=== PATIENT | male | born 1930 | race Caucasian/White ===

== ENCOUNTER 2016-06-27 07:24 | Emergency (ER) | payer MEDICARE, BC ==
[2015-01-29 10:30] VITALS: BMI 24.5
[~2016-06-27 07:24] MED LIST: ACETAMINOPHEN325 MG PO; ANTIVERT25 MG PO; AUGMENTIN 875-11 TAB PO; BACTRIM DS TABL1 TAB PO; CIPRODEX OTIC7.5 ML LEFT EAR; COZAAR50 MG PO; ELIQUIS2.5 MG PO; GLUCOTROL 5 MG T5 MG PO; METOPROLOL TART50 MG PO; MIRALAX17 GM PO; NORVASC10 MG PO; NYSTATIN1 PWD TOPICAL; PRAVACHOL20 MG PO; PROBENECID500 MG PO; ULTRAM50 MG PO; VITAMIN E1000 UNIT PO
[2016-06-27 08:39] LABS: BASOPHILS 0.1 % (0-2); EOSINOPHILS 0.1 % (0-7); HEMATOCRIT 42.2 % (42.0-54.0); HEMOGLOBIN 13.7 g/dL (13.5-17.5); IMMATURE GRANULOCYTES 0.4 % (0-5); LYMPHOCYTES 7.5 % (15-50); MCH 31.9 pg (26.0-34.0); MCHC 32.5 g/dL (31.0-37.0); MCV 98.4 fL (80.0-100.0); MEAN PLATELET VOLUME 9.6 fL (7.4-10.4); MONOCYTES 8.6 % (2-11); NEUTROPHILS 83.3 % (40-80); PLATELET COUNT 204 10x3/uL (130-400); RBC 4.29 10x6/uL (4.20-6.10); RDW 14.1 % (11.5-14.5)
[2016-06-27 09:05] LABS: ANION GAP 11.6 mmol/L (8-16); BILIRUBIN - TOTAL 0.93 mg/dL (0.2-1.3); CALCIUM 9.1 mg/dL (8.5-10.1); CARBON DIOXIDE 29.5 mmol/L (21.0-32.0); CREATININE - SERUM 1.5 mg/dL (0.6-1.3); POTASSIUM - SERUM 4.1 mmol/L (3.5-5.1); PROTEIN - SERUM 7.5 g/dL (6.4-8.2)
[2016-06-27 09:12] LABS: MAGNESIUM - SERUM 1.7 mg/dL (1.8-2.4); TROPONIN-I 0.03 ng/mL (0.000-0.060)
[2016-06-27 10:20] LABS: APPEARANCE SLT CLOUDY (CLEAR); COLOR YELLOW (YELLOW)
[2016-06-27 10:21] LABS: BACTERIA MANY /hpf (NONE SEEN); BILIRUBIN NEGATIVE (NEGATIVE); EPITHELIAL CELLS 0-5 /hpf (0-5); GLUCOSE 50 mg/dL (NEGATIVE); KETONE NEGATIVE (NEGATIVE); LEUKOCYTE ESTERASE 2+ (NEGATIVE); MUCUS <1+ /lpf (NONE SEEN); NITRITE POSITIVE (NEGATIVE); PROTEIN NEGATIVE (NEGATIVE); RED CELLS - URINE 0-5 /hpf (0-5); UROBILINOGEN NORMAL (NORMAL); WHITE CELLS - URINE 25-50 /hpf (0-5)
== END 2016-06-27 11:58 | disposition home or self-care (01) ==
LOC: D.ER 07:24
PROVIDERS: Emergency Medicine
DX: F03.90 Unspecified dementia, unspecified severity, without behavioral disturbance, psychotic disturbance, mood disturbance, and anxiety (principal); E83.42 Hypomagnesemia; W05.0XXA Fall from non-moving wheelchair, initial encounter; Y93.89 Activity, other specified; Y92.129 Unspecified place in nursing home as the place of occurrence of the external cause

== ENCOUNTER 2016-07-06 22:13 | Inpatient (IN) | payer MEDICARE, BC ==
[~2016-07-06] VITALS: Ht 180.3 cm; Wt 108.9 kg
[2016-07-06 22:50] LABS: BASOPHILS 0.1 % (0-2); EOSINOPHILS 0.6 % (0-7); HEMATOCRIT 37.1 % (42.0-54.0); HEMOGLOBIN 12.4 g/dL (13.5-17.5); IMMATURE GRANULOCYTES 1.3 % (0-5); LYMPHOCYTES 7.9 % (15-50); MCH 32.2 pg (26.0-34.0); MCHC 33.4 g/dL (31.0-37.0); MCV 96.4 fL (80.0-100.0); MEAN PLATELET VOLUME 9.4 fL (7.4-10.4); MONOCYTES 8.2 % (2-11); NEUTROPHILS 81.9 % (40-80); PLATELET COUNT 242 10x3/uL (130-400); RBC 3.85 10x6/uL (4.20-6.10); RDW 13.6 % (11.5-14.5); WBC 16.1 10x3/uL (4.8-10.8)
[2016-07-06 23:02] LABS: ALBUMIN 2.6 g/dL (3.4-5.0); ANION GAP 13.5 mmol/L (8-16); BILIRUBIN - TOTAL 0.46 mg/dL (0.2-1.3); CALCIUM 8.6 mg/dL (8.5-10.1); CARBON DIOXIDE 25.1 mmol/L (21.0-32.0); CREATININE - SERUM 1.4 mg/dL (0.6-1.3); POTASSIUM - SERUM 4.6 mmol/L (3.5-5.1); PROTEIN - SERUM 6.7 g/dL (6.4-8.2)
[2016-07-06 23:50] LABS: APPEARANCE TURBID (CLEAR); BILIRUBIN NEGATIVE (NEGATIVE); COLOR YELLOW (YELLOW); GLUCOSE NEGATIVE (NEGATIVE); KETONE NEGATIVE (NEGATIVE); LEUKOCYTE ESTERASE 2+ (NEGATIVE); NITRITE POSITIVE (NEGATIVE); PROTEIN 1+ mg/dL (NEGATIVE); UROBILINOGEN NORMAL (NORMAL)
[2016-07-07 00:05] LABS: AMORPHOUS SEDIMENT >1+ /lpf (NONE SEEN); BACTERIA MANY /hpf (NONE SEEN); EPITHELIAL CELLS 0-5 /hpf (0-5); GRANULAR CAST OCC /lpf (NONE SEEN); RED CELLS - URINE 0-5 /hpf (0-5); WHITE CELLS - URINE >50 /hpf (0-5)
[2016-07-07] MEDS ORDERED: HUMALOG 30100 UNITS/ SC (02:38)
[2016-07-07] MEDS ORDERED: ATIVAN0.5 MG PO (02:40)
[2016-07-07] MEDS ORDERED: MORPHINE S20 MG/5 ML PO (02:46)
[2016-07-07] MEDS ORDERED: METOPROLOL TART50 MG PO (02:48)
[2016-07-07] MEDS ORDERED: GABAPENTIN100 MG PO (02:49)
[2016-07-07] MEDS ORDERED: LASIX20 MG PO (02:50)
[2016-07-07] MEDS ORDERED: PROBENECID500 MG PO (02:51)
[2016-07-07] MEDS ORDERED: LOSARTAN POTASS25 MG PO (02:52)
[2016-07-07] MEDS ORDERED: ASPIRIN81 MG PO (02:53)
[2016-07-07] MEDS ORDERED: KLOR-CON 1010 MEQ PO (02:54)
[2016-07-07] MEDS ORDERED: MECLIZINE HCL25 MG PO (02:55)
[2016-07-07] MEDS ORDERED: GLUCOPHAGE500 MG PO (02:57)
[2016-07-07] MEDS ORDERED: MIRALAX17 GM PO (02:58)
[2016-07-07] MEDS ORDERED: TYLENOL650 MG RC (02:59)
[2016-07-07] MEDS ORDERED: COMPAZINE10 MG PO (02:59)
[2016-07-07] MEDS ORDERED: LIDOCAINE50 GM TOPICAL (03:01)
[2016-07-07] MEDS ORDERED: BISAC-EVAC10 MG/SUPP RC (03:01)
[2016-07-07 04:00] VITALS: BP 146/82
[2016-07-07 04:44] VITALS: BP 126/67; BMI 33.5
--- NOTE | 2016-07-07 07:00 | NUR ---
REPORT RECEIVED FROM ELECTRICAL INSTRUMENT REPAIRER NURSE. CALL LIGHT IN REACH.
[2016-07-07 07:46] VITALS: BP 133/55
--- NOTE | 2016-07-07 09:22 | NUR ---
ASSESSMENT COMPLETED. BED ALARM ON. SCDs TO BLE. PASSWORD OBTAINED FROM WHOM IS AT BEDSIDE. REPOSITIONED ON RIGHT SIDE FOR COMFORT. CARE PLAN REVIEWED. CALL LIGHT IN REACH. WILL CONTINUE WITH PLAN OF CARE.
[2016-07-07 11:51] VITALS: BP 139/99
--- NOTE | 2016-07-07 11:55 | NUR ---
NO DISTRESS NOTED AT THIS TIME. IN ROOM. CALL LIGHT IN REACH.
[2016-07-07 12:22] VITALS: Ht 180.3 cm; Wt 108.9 kg
--- NOTE | 2016-07-07 12:24 | NUR ---
ROUSES TO VERBAL AND TACTILE SENSATION. ORIENTED TO SELF. LUNGS ARE CLEAR BIALTERALLY BUT DIMINISHED THROUGHOUT, NO COUGH NOTED. SKIN IS INTACT WITHOUT REDNESS. IV TO LEFT HAND IS PATENT WITHOUT REDNESS AT INSERTION SITE. NO NEEDS NOTED.
--- NOTE | 2016-07-07 13:20 | NUR ---
RESTING WITH EYES CLOSED. RESP EVEN AND UNLABORED. CALL LIGHT IN REACH.
[2016-07-07 14:44] VITALS: BP 125/61
--- NOTE | 2016-07-07 15:09 | NUR ---
WILL NOT GIVE ORAL MEDS AT THIS TIME BECAUSE PATIENT IS NOT FULLY AWAKE.
--- NOTE | 2016-07-07 16:06 | NUR ---
Patient Name: GONZALO HOU Admission Status: ER Accout number: [id number] Admission Date: 07-07-2016 : 1930 Admission Diagnosis:PNEUMONIA, UNSPECIFIED ORGANISM Attending: RODNEY Current LOS: 1 Anticipated DC Date: 07-10-2016 Planned Disposition: [facility] Facility w Plan Readm Primary Insurance: MEDICARE A & B Discharge Planning Comments: CM MET WITH PT (ASLEEP AND UNABLE TO ANSWER) , (LYUDMILA) DAUGHTER (ISA DIEZ) TO ASSESS DISCHARGE PLANNING/NEEDS. PT STATE DISCHARGE PLAN IS TO RETURN TO [facility]. PT IS A CURRENT RESIDENT THERE. CM WILL CONTINUE TO FOLLOW AND ASSIST NEEDED WITH DISCHARGE PLANNING/NEEDS. PCP: ZELALEM HOU (SPOUSE) [phone] Housing Relocation: [facility] * Is the patient Alert and Oriented? No 0 * How many steps to enter\exit or inside your home? 0 0 * PCP ZELALEM 0 * Pharmacy [facility] 0 * Preadmission Environment Weight Control Lecturer Detention 0 * Facility Name [facility] 0 * ADLs Total Dependent 0 * Equipment Hospital Bed Sukhi Lift 0 * List name and contact numbers for known caregivers / representatives who currently or will assist patient after discharge: LYUDMILA HOU (SPOUSE) ISA DIEZ (DAUGHTER) 0 * Community resources currently utilized Other 0 * Please name any agencies selected above. LIVES AT [facility] 0 * Additional services required to return to the preadmission environment? Yes 0 * Can the patient safely return to the preadmission environment? Yes 0 * Has this patient been hospitalized within the prior 30 days at any hospital? No 0
--- NOTE | 2016-07-07 17:02 | NUR ---
FSBS 360. HUMALOG 10 UNITS SUBQ TO RIGHT ARM. CONVOLUTE TUBE WINDER IN ROOM FEEDING PATIENT.
--- NOTE | 2016-07-07 18:40 | NUR ---
NO CHANGES IN INITIAL ASSESSMENT. CALL LIGHT IN REACH. SCDs TO BLE. ALARM ON. CALL LIGHT IN REACH. WILL CONTINUE WITH PLAN OF CARE.
[2016-07-07 20:00] VITALS: BP 175/91
[2016-07-08] VITALS: BP 155/98
[2016-07-08 04:00] VITALS: BP 133/57
--- NOTE | 2016-07-08 04:37 | NUR ---
ASSESSED AT THE BEGINNING OF THE SHIFT. PT IS NOT RESPONDING TO NURSES WHEN THEY TALK TO HIM AND HE IS A TOTAL CARE PT. HE HAS HAD A BATH TONIGHT AND WE ARE TURNING HIM DUE TO HIS INABILITY TO DO SO. HIS BOTTOM IS RED AND WE USED MISTY BUTT PASTE. HE HAD A TEMP OF 102.0 WHEN THE VITAL SIGNS WERE TAKEN AND THEN WE GAVE HIM TYLENOL. IT WAS CRUSHED AND GIVEN WITH PUDDING WHICH HE ATE AND FINISHED. TELEMETRY IS IN PLACE. THE BED IS LOW, RAILS UP X'S 2 WITH THE CALL LIGHT AT HAND.
[2016-07-08 05:52] LABS: BASOPHILS 0.1 % (0-2); EOSINOPHILS 0.1 % (0-7); HEMATOCRIT 36.2 % (42.0-54.0); HEMOGLOBIN 11.6 g/dL (13.5-17.5); IMMATURE GRANULOCYTES 0.5 % (0-5); LYMPHOCYTES 9.3 % (15-50); MCH 31.4 pg (26.0-34.0); MCV 97.8 fL (80.0-100.0); MEAN PLATELET VOLUME 10.1 fL (7.4-10.4); MONOCYTES 7.9 % (2-11); NEUTROPHILS 82.1 % (40-80); PLATELET COUNT 256 10x3/uL (130-400); RDW 14.3 % (11.5-14.5); WBC 12.8 10x3/uL (4.8-10.8)
[2016-07-08 06:07] LABS: ANION GAP 12.1 mmol/L (8-16); CALCIUM 8.5 mg/dL (8.5-10.1); CARBON DIOXIDE 26.9 mmol/L (21.0-32.0); CREATININE - SERUM 1.6 mg/dL (0.6-1.3)
[2016-07-08 08:05] VITALS: BP 144/59
--- NOTE | 2016-07-08 10:11 | NUR ---
CALLED PHARMACY REGARDING PROBENECID, NOT ANY AVAILABLE IN THE [facility] OR [facility].
[2016-07-08 12:38] VITALS: BP 147/61
[2016-07-08 16:01] VITALS: BP 150/73
--- NOTE | 2016-07-08 18:25 | NUR ---
WITH ADULT EDUCATION MANAGER, CHANGED PATIENT'S LINENS, FROM INCONTINENT VOID. TURNED PATIENT FROM HIS RIGHT SIDE TO HIS LEFT SIDE. POSITIONED WITH A PILLOW. D/C IV WITH CATHETER INTACT. ELEVATED BILATERAL LEGS ON A PILLOW.
[2016-07-08 20:00] VITALS: BP 144/51
[2016-07-09] VITALS: BP 127/91
--- NOTE | 2016-07-09 00:41 | NUR ---
ASSESSED AT THE BEAGINNING OF THE SHIFT. PT IS NOT RESPONDING TO NURSE TALKING BUT IS RESPONDING IF YOU MOVE HIM OR HIS ARMS. HE WAS GIVEN MEDS CRUSHED WITH PUDDING AT HS AND IBUPROFEN WAS INCLUDED FOR HIS TEMP. THERE IS RED AREA TO HIS BOTTOM AND WE ARE PLACING MISTY'S BUTT PASTE ON IT. HE IS A TURN Q 2 HR PT AND THE HOB IS ELEVATED TO 30 DEGREES. TONIGHT HE HAS BEEN COUGHING ALOT AND HE SOUNDS A LITTLE WHEEZEY. THE BED IS LOW, RAILS UP X'S 2 WITH THE CALL LIGHT AT HAND.
[2016-07-09 04:00] VITALS: BP 116/73
[2016-07-09 06:20] LABS: BASOPHILS 0.1 % (0-2); EOSINOPHILS 1.5 % (0-7); HEMATOCRIT 35.7 % (42.0-54.0); HEMOGLOBIN 11.4 g/dL (13.5-17.5); IMMATURE GRANULOCYTES 0.3 % (0-5); LYMPHOCYTES 14.3 % (15-50); MCH 31.8 pg (26.0-34.0); MCHC 31.9 g/dL (31.0-37.0); MCV 99.4 fL (80.0-100.0); MEAN PLATELET VOLUME 9.7 fL (7.4-10.4); MONOCYTES 10.2 % (2-11); NEUTROPHILS 73.6 % (40-80); PLATELET COUNT 238 10x3/uL (130-400); RBC 3.59 10x6/uL (4.20-6.10); RDW 14.3 % (11.5-14.5); WBC 9.8 10x3/uL (4.8-10.8)
[2016-07-09 06:42] LABS: ANION GAP 9.2 mmol/L (8-16); CALCIUM 8.5 mg/dL (8.5-10.1); CARBON DIOXIDE 30.1 mmol/L (21.0-32.0); CREATININE - SERUM 1.7 mg/dL (0.6-1.3); POTASSIUM - SERUM 4.3 mmol/L (3.5-5.1)
--- NOTE | 2016-07-09 07:30 | NUR ---
REPORT RECEIVED FROM TEAM FACILITATOR \NURSE. CALL LIGHT IN REACH
[2016-07-09 07:44] VITALS: BP 162/89
--- NOTE | 2016-07-09 09:20 | NUR ---
ASSESSMSENT COMPLETED PER MICHELLE PEREZ. SCDs TO BLE. BED ALARM ON. CALL LIGHT IN REACH. WILL CONTINUE WITH PLAN OF CARE.
--- NOTE | 2016-07-09 10:20 | NUR ---
FAMILY IN ROOM. CALL LIGHT IN REACH. NO DISTRESS NOTED.
--- NOTE | 2016-07-09 12:18 | NUR ---
AM MEDS ADMINISTERED. 6 UNITS INSULIN ADMINISTERED TO RIGHT ARM D/T BS OF 255. IN ROOM. CALL LIGHT IN REACH.
[2016-07-09 12:40] VITALS: BP 153/82
--- NOTE | 2016-07-09 14:20 | NUR ---
FAMILY IN ROOM. NO NEEDS VOICED AT THIS TIME. CALL LIGHT IN REACH.
[2016-07-09 15:50] VITALS: BP 150/69
--- NOTE | 2016-07-09 16:20 | NUR ---
RESTING WITH EYES CLOSED RESP EVEN AND UNLABORED. CALL LIGHT IN REACH.
--- NOTE | 2016-07-09 18:00 | NUR ---
RESTING WITH EYES CLOSED. RESP EVEN AND UNLABORED. CALL LIGHT IN REACH. WILL OF CONTINUE WITH PLAN OF CARE.
[2016-07-09 20:00] VITALS: BP 159/77
--- NOTE | 2016-07-09 20:00 | NUR ---
ASSESSMENT PRE FLOWSHEET. O2 ON 1.5L/M PER NC. HOB UP 30DEGREES. SR UP X2 BOX ALARM CONNECTED TO PATIENT. TELM. SHOWS. SR WITH HR 94.IV PATENT LEFT HAND OF NS AT 50CC'S/HR SITE CLEAR.
--- NOTE | 2016-07-09 21:30 | NUR ---
MEDS GIVEN PER MAR. ZUSW=362. HUMALOG INSULIN 4 UNITS GIVEN SUBC PER S/S.
--- NOTE | 2016-07-10 | NUR ---
INC URINE VS TAKEN COMPLETE BEDBATH WITH LINENS CHANGED DONE.
[2016-07-10 00:09] VITALS: BP 144/74
--- NOTE | 2016-07-10 03:00 | NUR ---
EYES CLOSED RESPIRATIONS WITH EASE AND UNLABORED.
[2016-07-10 04:00] VITALS: BP 140/77
[2016-07-10 05:48] LABS: BASOPHILS 0.1 % (0-2); EOSINOPHILS 3.4 % (0-7); HEMATOCRIT 33.3 % (42.0-54.0); HEMOGLOBIN 10.8 g/dL (13.5-17.5); IMMATURE GRANULOCYTES 0.7 % (0-5); LYMPHOCYTES 15.1 % (15-50); MCH 31.9 pg (26.0-34.0); MCHC 32.4 g/dL (31.0-37.0); MCV 98.2 fL (80.0-100.0); MEAN PLATELET VOLUME 9.5 fL (7.4-10.4); MONOCYTES 9.1 % (2-11); NEUTROPHILS 71.6 % (40-80); PLATELET COUNT 272 10x3/uL (130-400); RBC 3.39 10x6/uL (4.20-6.10); WBC 7.4 10x3/uL (4.8-10.8)
[2016-07-10 05:58] LABS: ANION GAP 9.8 mmol/L (8-16); CALCIUM 8.3 mg/dL (8.5-10.1); CARBON DIOXIDE 29.5 mmol/L (21.0-32.0); CREATININE - SERUM 1.3 mg/dL (0.6-1.3); POTASSIUM - SERUM 4.3 mmol/L (3.5-5.1)
--- NOTE | 2016-07-10 07:15 | NUR ---
ASSESSMENT PER FLOW SHEET.PT WITHOUT DISTRESS.CALL LIGHT IN REACH.FALL PREVENTION IN PLACE.
[2016-07-10 07:59] VITALS: BP 144/86
[2016-07-10 12:07] VITALS: BP 142/78
--- NOTE | 2016-07-10 14:48 | NUR ---
HAS REMAINED WITHOUT NEEDS,WITHOUT DISTRESS.CALL LIGHT IN REACH
[2016-07-10 16:31] LABS: % SATURATION 13 % (15-55); IRON 19 ug/dl (35-150); TOTAL IRON BIND CAPACITY 144 ug/dl (260-445); UNSAT IRON BIND CAPACITY 125 ug/dl (150-375)
[2016-07-10 16:32] VITALS: BP 127/89
--- NOTE | 2016-07-10 18:43 | NUR ---
REMAINS WITHOUT NEEDS,WITHOUT CHANGE.CONT PLAN OF CARE
[2016-07-10 20:00] VITALS: BP 158/77
--- NOTE | 2016-07-10 20:00 | NUR ---
ASSESSMENT PER FLOWSHEET. IV PATENT LEFT HAND OF NS AT 50CC'S/HR SITE CLEAR. BOX ALARM ON. SR UP X3 CALL LIGHT WITHIN REACH. DOOR OPENED.
--- NOTE | 2016-07-10 21:15 | NUR ---
MEDS GIVEN PER APR. CRUSHED WITH APPLESAUCE.
--- NOTE | 2016-07-11 | NUR ---
EYES CLOSED REOSIRATIONS WITH EASE AND UNLABORED.
--- NOTE | 2016-07-11 02:00 | NUR ---
INC URINE COMPLETE BED BATH WITH LINENS CHANGED.
[2016-07-11 04:00] VITALS: BP 144/81
--- NOTE | 2016-07-11 05:45 | NUR ---
STEPHANIE RAMIREZ PER MAR. INC URINE LINENS CHANGED.
--- NOTE | 2016-07-11 07:21 | NUR ---
MEDS GIVEN PER MAR.
--- NOTE | 2016-07-11 07:40 | NUR ---
ASSESSMENT PER FLOW SHEET.PT WITHOUT DISTRESS.AWAKENS INT THIS AM.FALL PREVENTION IN PROGRESS.MONITOR FOR NEEDS
--- NOTE | 2016-07-11 09:00 | NUR ---
AM MEDS,WITHOUT DISTRESS.HARD TO WAKE THIS AM.PT VERY SLEEPY.BS 108
--- NOTE | 2016-07-11 10:15 | NUR ---
TO VISIT.PT SLEEPING WITHOUT DISTRESS. STATES HE SLEEPS LIKE THAT SOMETIMES.MONITOR FOR NEEDS
[2016-07-11 12:42] VITALS: BP 146/85
--- NOTE | 2016-07-11 13:17 | NUR ---
NUTRITION MONITORING & EVAL CHART REVIEWED, PT REMAINS IN ISOLATION. SPOUSE AT BEDSIDE, REPORTS SHE IS NOT ABLE TO WAKE PT FOR LUNCH. WILL CONTINUE TO PROVIDE DIET, MONITOR PO INTAKE. RD FOLLOWING
[2016-07-11] MEDS ORDERED: ZOSYN 3.3753.375 G1 IV (13:59)
--- NOTE | 2016-07-11 14:11 | NUR ---
STILL UNABLE TO WAKE PT FOR ANY PERIOD OF TIME.DR MASTERSON TO SEE HIM.SHE STATES SOMETIMES THIS HAPPENS WITH DEMETIA.PT WILL DC BACK TO [facility] TODAY.IV ABX ORDERED.
--- NOTE | 2016-07-11 14:54 | NUR ---
CM REASSESSMENT NOTE: PATIENT IS DISCHARGING TODAY BY AMBULANCE BACK TO [facility].
--- NOTE | 2016-07-11 15:25 | NUR ---
REPORT CALLED TO LUIS CASTANEDA,SPOKE WITH BIANCA
[2016-07-11 15:41] LABS: ALBUMIN 2.2 g/dL (3.4-5.0); BILIRUBIN - DIRECT 0.21 mg/dL (0.00-0.30); BILIRUBIN - INDIRECT 0.32 mg/dL (0.00-1.00); BILIRUBIN - TOTAL 0.53 mg/dL (0.2-1.3); PROTEIN - SERUM 5.7 g/dL (6.4-8.2)
--- NOTE | 2016-07-11 16:31 | NUR ---
LEFT UNIT VIA STRETCHER WITH [employer] FOR TRANSPORT TO [facility]
[2016-07-12 08:22] LABS: FOLATE (FOLIC ACID) - SERUM 8.3 ng/mL (>3.0)
== END 2016-07-11 16:31 | disposition home health service (06) | DRG 689 ==
LOC: D.ER 22:13 → D.MS 07-07 01:17
PROVIDERS: Emergency Medicine; ADMIT Family Medicine
DX: N39.0 Urinary tract infection, site not specified (principal); J18.9 Pneumonia, unspecified organism; G91.2 (Idiopathic) normal pressure hydrocephalus; G30.9 Alzheimer's disease, unspecified; F02.80 Dementia in other diseases classified elsewhere, unspecified severity, without behavioral disturbance, psychotic disturbance, mood disturbance, and anxiety; I48.2 Chronic atrial fibrillation; R13.10 Dysphagia, unspecified; B96.20 Unspecified Escherichia coli [E. coli] as the cause of diseases classified elsewhere; E11.9 Type 2 diabetes mellitus without complications; I10 Essential (primary) hypertension; Z95.0 Presence of cardiac pacemaker; Z98.2 Presence of cerebrospinal fluid drainage device; E78.5 Hyperlipidemia, unspecified; H91.90 Unspecified hearing loss, unspecified ear

== ENCOUNTER 2016-07-13 10:29 | Outpatient (CLI) | payer MEDICARE, BC ==
[2016-07-07 12:22] VITALS: BMI 33.4
[~2016-07-13 10:29] MED LIST changes: +ASPIRIN81 MG PO; +ATIVAN0.5 MG PO; +BISAC-EVAC10 MG/SUPP RC; +COMPAZINE10 MG PO; +GABAPENTIN100 MG PO; +GLUCOPHAGE500 MG PO; +HUMALOG 30100 UNITS/ SC; +KLOR-CON 1010 MEQ PO; +LASIX20 MG PO; +LIDOCAINE50 GM TOPICAL; +LOSARTAN POTASS25 MG PO; +MECLIZINE HCL25 MG PO; +MORPHINE S20 MG/5 ML PO; +TYLENOL650 MG RC; +ZOSYN 3.3753.375 G1 IV
--- NOTE | 2016-07-13 12:00 | NUR ---
1040-RECD TO ROOM 2502 FOR HANNA KIRAN RN TO PLACE PICC VS MID-LINE IV. 1130-MIDLINE IV PLACED PER HANNA KIRAN RN 1145-DISCHARGE INSTRUCTIONS REVIEWED WITH SENIOR PHP DEVELOPER. 1200-D/C VIA WHEELCHAIR TO [facility].
--- NOTE | 2016-07-13 12:12 | NUR ---
Patient in outpatient department for PICC placement. After discussing GISSEL therapy with family in attendance, Dr. Dave contacted regarding midline placement. Will place midline. Midline discussed with patients family in attendance. Using site rite ultrasound, left upper arm basilic vein identified. Chloraprep wipes x 2 to arm. Prep, drape and 1% xylocaine to area. Vein accessed and single lumen midline inserted to 15 cm. Lumen flushes easily and with good blood return. Site dressed with statlock, biopatch and tegaderm dressing. Lashanda Parson RN
== END 2016-07-13 12:00 | disposition home or self-care (01) ==
LOC: D.OPS 10:29
DX: R82.99 Other abnormal findings in urine (principal)

== ENCOUNTER → 2017-08-21 15:50 | Outpatient (CLI) | payer MEDICARE, BC ==
[2016-07-07 12:22] VITALS: BMI 33.4
== END | disposition home or self-care (01) ==
LOC: D.CT 15:50
DX: S09.90XA Unspecified injury of head, initial encounter (principal); W19.XXXA Unspecified fall, initial encounter; Y93.9 Activity, unspecified; Y92.9 Unspecified place or not applicable

== ENCOUNTER 2017-12-27 22:49 | Inpatient (IN) | payer MEDICARE, BC ==
[~2017-12-27] VITALS: Ht 180.3 cm; Wt 90.7 kg
--- NOTE | ~2017-12-27 | MORECARE ---
CASE MANAGEMENT DISCHARGE SUMMARY PATIENT: GONZALO HOU UNIT: [id number] ADM DATE: 12/28/17 AGE: 87 : 29 SEX: M ROOM/BED: D.2104 AUTHOR: DASHA WINTERS PHYSICIAN: REFERRING PHYSICIAN: ZINA MASTERSON MD DATE OF SERVICE: 01/03/18 Discharge Plan Patient Name: GONZALO HOU Facility: [facility]:[place] : 1930 Planned Disposition: Nursing Facility STEFANIE Cert Anticipated Discharge Date: 01/03/18 Discharge Date: Expected LOS: 6 Initial Reviewer: [id number] Initial Review Date: 01/03/2018 Generated: 01/03/18 11:35 am DCPIA - Discharge Planning Initial Assessment Updated by [email or web address]: Josh Mayo on 01/03/18 10:33 am * Is the patient Alert and Oriented? No * How many steps to enter\exit or inside your home? NONE * PCP DR. MASTERSON * Preadmission Environment [facility] Longterm * Facility Name [facility] * ADLs Partial Dependent * Partial ADLs (Assistance needed) Bathing Dressing Medication Management Toileting Transfers * Equipment Other * Other Equipment ALL MEDICAL EQUIPMENT PROVIDED BY FACILITY * List name and contact numbers for known caregivers / representatives who currently or will assist patient after discharge: LYUDMILA HOUKIMBERLY, * Verbal permission to speak to the caregivers and representatives has been obtained from the patient. N/A * Community resources currently utilized None * Please name any agencies selected above. NONE * Additional services required to return to the preadmission environment? No * Can the patient safely return to the preadmission environment? Yes * Has this patient been hospitalized within the prior 30 days at any hospital? No Last DP export: 01/03/18 9:29 Patient Name: GONZALO HOU Page 35220 at 1035 All edits/amendments must be made on the electronic document DICTATION DATE: 01/03/18 1035 CAMP DIRECTOR: TONJA 01/03/18 1035 RPT#: [id number] DC DATE:01/03/18 STATUS: DIS IN [facility] [address] [place] [address] END OF REPORT
--- NOTE | ~2017-12-27 | MORECARE ---
CASE MANAGEMENT DISCHARGE SUMMARY PATIENT: GONZALO HOU UNIT: [id number] ADM DATE: 12/28/17 AGE: 87 : 29 SEX: M ROOM/BED: D.2101 AUTHOR: VIANEY,DOC PHYSICIAN: REFERRING PHYSICIAN: ZINA MASTERSON MD DATE OF SERVICE: 01/03/18 Discharge Plan Patient Name: GONZALO HOU Facility: [facility]:[place] : 1930 Planned Disposition: Nursing Facility STEFANIE Cert Anticipated Discharge Date: 01/03/18 Discharge Date: Expected LOS: 6 Initial Reviewer: [id number] Initial Review Date: 01/03/2018 Generated: 01/03/18 1:01 pm Comments DCP- Discharge Planning Updated by [id number]: Jsoh Mayo on 01/03/18 9:[address] Patient Name: GONZALO HOU Admission Status: ER Accout number: [id number] Admission Date: 12-28-2017 : 1930 Admission Diagnosis:HYPEROSMOLALITY AND HYPERNATREMIA Attending: ZINA MASTERSON Current LOS: 6 Anticipated DC Date: 01-03-2018 Planned Disposition: Nursing Facility STEFANIE Cert Primary Insurance: MEDICARE A & B Discharge Planning Comments: CM MET WITH PT IN ROOM TO DISCUSS DISCHARGE PLANNING AND NEEDS. CM WAS NOT ABLE TO WAKE PT. IMPORTANT MESSAGE FROM MEDICARE LEFT IN ROOM. CM REVIEWED CHART WHICH INDICATES PT IS IN GROUP MANAGER CARE AT [facility], NOTE ON FRONT OF CHART FROM PT'S SPOUSE ASKED TO BE CALLED BEFORE RETURN TO RETIREMENT. CM CALLED LYUDMILA HOU, , WHO IS IN AGREEMENT WITH PT'S RETURN TO [facility] WHERE PT HAS RESIDED FOR THE PAST TWO YEARS. LYUDMILA REPORTS PT IS UP TO WHEELCHAIR DAILY AT THE RETIREMENT AND TAKEN TO DINING ROOM IN THE WHEELCHAIR. SPOUSE DENIES DISCHARGE NEEDS, REPORTS [facility] SHOULD PROVIDE WHEELCHAIR VAN TO DIRECTOR PHONE PT. CM INFORMED LYUDMILA THAT IMPORTANT MESSAGE FROM MEDICARE WAS LEFT IN ROOM FOR HER. LYUDMILA DOES NOT PLAN AT THIS TIME TO VISIT BEFORE PT LEAVES. CM EXPLAINED IT WILL BE SENT WITH PT AND HIS BELONGINGS TO [facility]. CM NOTIIFED DAVON OF [facility] AT [phone]. CM FAXED DISCHARGE INFORMATION TO [facility] AT [phone]. NURSE REPORT TO BE CALLED TO [facility] AT [phone].[facility] TO ARRANGE VAN TRANSPORTATION. Associate Financial Advisor: Josh Mayo DCPIA - Discharge Planning Initial Assessment Updated by [email or web address]: Josh Mayo on 01/03/18 10:33 am * Is the patient Alert and Oriented? No * How many steps to enter\exit or inside your home? NONE * PCP DR. MASTERSON * Preadmission Environment Catheter Finisher And Inspector [facility] * Facility Name [facility] * ADLs Partial Dependent * Partial ADLs (Assistance needed) Bathing Dressing Medication Management Toileting Transfers * Equipment Other * Other Equipment ALL MEDICAL EQUIPMENT PROVIDED BY FACILITY * List name and contact numbers for known caregivers / representatives who currently or will assist patient after discharge: KIMBERLY BANKS, * Verbal permission to speak to the caregivers and representatives has been obtained from the patient. N/A * Community resources currently utilized None * Please name any agencies selected above. NONE * Additional services required to return to the preadmission environment? No * Can the patient safely return to the preadmission environment? Yes * Has this patient been hospitalized within the prior 30 days at any hospital? No Coverage Notice Reviewer: [id number] - Josh Mayo Notice Issued Date-Time: 01/03/2018 9:45 Notice Type: IM Discharge Notice Notice Delivered To: Patient Relationship to Patient: School Office Assistant Name: Delivery Method: - Niyah Days: Prior Verbal Notification: Recipient Understood Notice: Recipient Signature: Med Rec Note Co-signed by Attending: Coverage Notice Comment: DISCUSSED WITH VIA PHONE AT APPROXIMATELY 0950 AM. Last DP export: 01/03/18 9:51 Patient Name: GONZALO HOU Page 52599 at 1201 All edits/amendments must be made on the electronic document DICTATION DATE: 01/03/18 1201 RECRUITMENT MANAGER: TONJA 01/03/18 1201 RPT#: [id number] [place] DATE: STATUS: ADM IN [facility] [address] [place] [address] END OF REPORT
--- NOTE | ~2017-12-27 | MORECARE ---
CASE MANAGEMENT DISCHARGE SUMMARY PATIENT: GONZALO HOU UNIT: [id number] ADM DATE: 12/28/17 AGE: 87 : 29 SEX: M ROOM/BED: D.2104 AUTHOR: DASHA WINTERS PHYSICIAN: REFERRING PHYSICIAN: ZINA MASTERSON MD DATE OF SERVICE: 01/03/18 Discharge Plan Patient Name: GONZALO HOU [facility] [facility] 1930 Planned Disposition: Nursing Facility STEFANIE Cert Anticipated Discharge Date: 01/03/18 Discharge Date: Expected LOS: 6 Initial Reviewer: [email or web address] Initial Review Date: 01/03/2018 Generated: 01/03/18 11:29 am DCPIA - Discharge Planning Initial Assessment Updated by [email or web address]: Josh Mayo on 01/03/18 10:27 am * Is the patient Alert and Oriented? No * How many steps to enter\exit or inside your home? NONE * PCP DR. DYE * Pharm[facility] * Preadmission Environment Transmission Repairer [facility] * Facility Name [facility] * ADLs Partial Dependent * Partial ADLs (Assistance needed) Bathing Dressing Medication Management Toileting Transfers * Equipment Other * Other Equipment ALL MEDICAL EQUIPMENT PROVIDED BY FACILITY * List name and contact numbers for known caregivers / representatives who currently or will assist patient after discharge: LYUDMILA HOU KIMBERLY, * Verbal permission to speak to the caregivers and representatives has been obtained from the patient. N/A * Community resources currently utilized None * Please name any agencies selected above. NONE * Additional services required to return to the preadmission environment? No * Can the patient safely return to the preadmission environment? Yes * Has this patient been hospitalized within the prior 30 days at any hospital? No Last DP export: 01/03/18 9:21 Patient Name: GONZALO HOU Page 57085 at 1029 All edits/amendments must be made on the electronic document DICTATION DATE: 01/03/18 1028 SPRAY BOOTH OPERATOR: TONJA 01/03/18 1028 RPT#: [id number] DC DATE: STATUS: ADM IN [facility] [address] [place] [address] END OF REPORT
--- NOTE | ~2017-12-27 | MORECARE ---
CASE MANAGEMENT DISCHARGE SUMMARY PATIENT: GONZLAO HOU UNIT: [id number] ADM DATE: 12/28/17 AGE: 87 : 29 SEX: M ROOM/BED: D.2105 AUTHOR: VIANEY,DOC PHYSICIAN: REFERRING PHYSICIAN: ZINA MASTERSON MD DATE OF SERVICE: 01/03/18 Discharge Plan Patient Name: GONZALO HOU Facility: [facility]:[place] : 1930 Planned Disposition: Nursing Facility STEFANIE Cert Anticipated Discharge Date: 01/03/18 Discharge Date: Expected LOS: 6 Initial Reviewer: [email or web address] Initial Review Date: 01/03/2018 Generated: 01/03/18 3:25 pm Comments DCP- Discharge Planning Updated by [email or web address]: Josh Mayo on 01/03/18 9:[address] Patient Name: GONZALO HOU Admission Status: ER Accout number: [id number] Admission Date: 12-28-2017 : 1930 Admission Diagnosis:HYPEROSMOLALITY AND HYPERNATREMIA Attending: ZINA MASTERSON Current LOS: 6 Anticipated DC Date: 01-03-2018 Planned Disposition: Nursing Facility STEFANIE Cert Primary Insurance: MEDICARE A & B Discharge Planning Comments: CM MET WITH PT IN ROOM TO DISCUSS DISCHARGE PLANNING AND NEEDS. CM WAS NOT ABLE TO WAKE PT. IMPORTANT MESSAGE FROM MEDICARE LEFT IN ROOM. CM REVIEWED CHART WHICH INDICATES PT IS IN CHAIN PERSON CARE AT [facility], NOTE ON FRONT OF CHART FROM PT'S SPOUSE ASKED TO BE CALLED BEFORE RETURN TO LONG TERM. CM CALLED LYUDMILA HOU, , WHO IS IN AGREEMENT WITH PT'S RETURN TO [facility] WHERE PT HAS RESIDED FOR THE PAST TWO YEARS. LYUDMILA REPORTS PT IS UP TO WHEELCHAIR DAILY AT THE LONG TERM AND TAKEN TO DINING ROOM IN THE WHEELCHAIR. SPOUSE DENIES DISCHARGE NEEDS, REPORTS [facility] SHOULD PROVIDE WHEELCHAIR VAN TO BLOWN FILM EXTRUSION OPERATOR PT. CM INFORMED LYUDMILA THAT IMPORTANT MESSAGE FROM MEDICARE WAS LEFT IN ROOM FOR HER. LYUDMILA DOES NOT PLAN AT THIS TIME TO VISIT BEFORE PT LEAVES. CM EXPLAINED IT WILL BE SENT WITH PT AND HIS BELONGINGS TO [facility]. CM NOTIIFED DAVON OF [facility] AT [phone]. CM FAXED DISCHARGE INFORMATION TO [facility] AT [phone]. NURSE REPORT TO BE CALLED TO [facility] AT [phone].[facility] TO ARRANGE VAN TRANSPORTATION. Hydrology Technician: Josh Mayo DCPIA - Discharge Planning Initial Assessment Updated by [id number]: Josh Mayo on 01/03/18 10:33 am * Is the patient Alert and Oriented? No * How many steps to enter\exit or inside your home? NONE * PCP DR. MASTERSON * Preadmission Environment Cashier Courtesy Booth [facility] * Facility Name [facility] * ADLs Partial Dependent * Partial ADLs (Assistance needed) Bathing Dressing Medication Management Toileting Transfers * Equipment Other * Other Equipment ALL MEDICAL EQUIPMENT PROVIDED BY FACILITY * List name and contact numbers for known caregivers / representatives who currently or will assist patient after discharge: KIMBERLY BANKS, * Verbal permission to speak to the caregivers and representatives has been obtained from the patient. N/A * Community resources currently utilized None * Please name any agencies selected above. NONE * Additional services required to return to the preadmission environment? No * Can the patient safely return to the preadmission environment? Yes * Has this patient been hospitalized within the prior 30 days at any hospital? No Coverage Notice Reviewer: [id number] - Josh Mayo Notice Issued Date-Time: 01/03/2018 9:45 Notice Type: IM Discharge Notice Notice Delivered To: Patient Relationship to Patient: Barback Name: Delivery Method: - Niyah Days: Prior Verbal Notification: Recipient Understood Notice: Recipient Signature: Med Rec Note Co-signed by Attending: Coverage Notice Comment: DISCUSSED WITH VIA PHONE AT APPROXIMATELY 0950 AM. Last DP export: 01/03/18 11:01 Patient Name: GONZALO HOU Page 27285 at 0130 All edits/amendments must be made on the electronic document DICTATION DATE: 01/03/181423 PARK MAINTAINER: TONJA 01/03/181423 RPT#: [id number] [place] DATE: STATUS: ADM IN [facility] [address] [place] [address] END OF REPORT
--- NOTE | ~2017-12-27 | MORECARE ---
CASE MANAGEMENT DISCHARGE SUMMARY PATIENT: GONZALO HOU UNIT: [id number] ADM DATE: 12/28/17 AGE: 87 : 29 SEX: M ROOM/BED: D.2104 AUTHOR: ADSHA WINTERS PHYSICIAN: REFERRING PHYSICIAN: ZINA MASTERSON MD DATE OF SERVICE: 01/03/18 Discharge Plan Patient Name: GONZALO HOU Facility: [facility]:[place] : 1930 Planned Disposition: Nursing Facility [facility]IE [facility] Anticipated Discharge Date: 01/03/18 Discharge Date: Expected LOS: 6 Initial Reviewer: [email or web address] Initial Review Date: 01/03/2018 Generated: 01/03/18 11:21 am Patient Name: GONZALO HOU Page 52741 at 1021 All edits/amendments must be made on the electronic document DICTATION DATE: 01/03/18 1020 GEAR HOBBER SET UP OPERATOR: TONJA 01/03/18 1020 RPT#: [id number] DC DATE: STATUS: ADM IN [facility] [address] [place] [address] END OF REPORT
--- NOTE | ~2017-12-27 | MORECARE ---
CASE MANAGEMENT DISCHARGE SUMMARY PATIENT: GONZALO HOU UNIT: [id number] ADM DATE: 12/28/17 AGE: 87 : 29 SEX: M ROOM/BED: D.2102 AUTHOR: VIANEY,DOC PHYSICIAN: REFERRING PHYSICIAN: ZINA MASTERSON MD DATE OF SERVICE: 01/03/18 Discharge Plan Patient Name: GONZALO HOU Facility: [facility]:[place] : 1930 Planned Disposition: Nursing Facility [facility] Cert Anticipated Discharge Date: 01/03/18 Discharge Date: Expected LOS: 6 Initial Reviewer: [id number] Initial Review Date: 01/03/2018 Generated: 01/03/18 11:50 am Comments DCP- Discharge Planning Updated by [email or web address]: Josh Mayo on 01/03/18 9:[address] Patient Name: GOZNALO HOU Admission Status: ER Accout number: [id number] Admission Date: 12-28-2017 : 1930 Admission Diagnosis:HYPEROSMOLALITY AND HYPERNATREMIA Attending: ZINA MASTERSON Current LOS: 6 Anticipated DC Date: 01-03-2018 Planned Disposition: Nursing Facility STEFANIE Cert Primary Insurance: MEDICARE A & B Discharge Planning Comments: CM MET WITH PT IN ROOM TO DISCUSS DISCHARGE PLANNING AND NEEDS. CM WAS NOT ABLE TO WAKE PT. IMPORTANT MESSAGE FROM MEDICARE LEFT IN ROOM. CM REVIEWED CHART WHICH INDICATES PT IS IN CORRECTION CARE AT [facility], NOTE ON FRONT OF CHART FROM PT'S SPOUSE ASKED TO BE CALLED BEFORE RETURN TO SKILLED NURSING. CM CALLED LYUDMILA HOU, , WHO IS IN AGREEMENT WITH PT'S RETURN TO [facility] WHERE PT HAS RESIDED FOR THE PAST TWO YEARS. LYUDMILA REPORTS PT IS UP TO WHEELCHAIR DAILY AT THE SKILLED NURSING AND TAKEN TO DINING ROOM IN THE WHEELCHAIR. SPOUSE DENIES DISCHARGE NEEDS, REPORTS [facility] SHOULD PROVIDE WHEELCHAIR VAN TO SALESPERSON HEARING AIDS PT. CM INFORMED LYUDMILA THAT IMPORTANT MESSAGE FROM MEDICARE WAS LEFT IN ROOM FOR HER. LYUDMILA DOES NOT PLAN AT THIS TIME TO VISIT BEFORE PT LEAVES. CM EXPLAINED IT WILL BE SENT WITH PT AND HIS BELONGINGS TO [facility]. CM NOTIIFED DAVON OF [facility] AT [phone]. CM FAXED DISCHARGE INFORMATION TO [facility] AT [phone]. NURSE REPORT TO BE CALLED TO [facility] AT [phone].[facility] TO ARRANGE VAN TRANSPORTATION. Cna Instructor: Josh Mayo DCPIA - Discharge Planning Initial Assessment Updated by [email or web address]: Josh Mayo on 01/03/18 10:33 am * Is the patient Alert and Oriented? No * How many steps to enter\exit or inside your home? NONE * PCP DR. MASTERSON * Preadmission Environment Chcf Mcc * Facility Name [facility] * ADLs Partial Dependent * Partial ADLs (Assistance needed) Bathing Dressing Medication Management Toileting Transfers * Equipment Other * Other Equipment ALL MEDICAL EQUIPMENT PROVIDED BY FACILITY * List name and contact numbers for known caregivers / representatives who currently or will assist patient after discharge: KIMBERLY BANKS, * Verbal permission to speak to the caregivers and representatives has been obtained from the patient. N/A * Community resources currently utilized None * Please name any agencies selected above. NONE * Additional services required to return to the preadmission environment? No * Can the patient safely return to the preadmission environment? Yes * Has this patient been hospitalized within the prior 30 days at any hospital? No External Providers External Provider: [facility] Next Contact Date: 01/03/2018 Service Request Date: Service Type: Resolution: Reviewer: Comments: Coverage Notice Reviewer: [id number] - Josh Mayo Notice Issued Date-Time: 01/03/2018 9:45 Notice Type: IM Discharge Notice Notice Delivered To: Patient Relationship to Patient: Mammography Technologist Name: Delivery Method: - Niyah Days: Prior Verbal Notification: Recipient Understood Notice: Recipient Signature: Med Rec Note Co-signed by Attending: Coverage Notice Comment: DISCUSSED WITH VIA PHONE AT APPROXIMATELY 0950 AM. Last DP export: 01/03/18 9:35 Patient Name: GONZALO HOU Page 05008 at 1051 All edits/amendments must be made on the electronic document DICTATION DATE: 01/03/18 1050 HAT BODY SORTER: TONJA 01/03/18 1050 RPT#: [id number] DC DATE: STATUS: ADM IN [facility] [address] [place] [address] END OF REPORT
--- NOTE | ~2017-12-27 | MORECARE ---
CASE MANAGEMENT DISCHARGE SUMMARY PATIENT: GONZALO HOU UNIT: [id number] ADM DATE: 12/28/17 AGE: 87 : 29 SEX: M ROOM/BED: D.2104 AUTHOR: VIANEY,DOC PHYSICIAN: REFERRING PHYSICIAN: ZINA MASTERSON MD DATE OF SERVICE: 01/03/18 Discharge Plan Patient Name: GONZALO HOU Facility: [facility]:[place] : 1930 Planned Disposition: Nursing Facility ST[facility]ANIE Cert Anticipated Discharge Date: 01/03/18 Discharge Date: Expected LOS: 6 Initial Reviewer: [id number] Initial Review Date: 01/03/2018 Generated: 01/03/18 3:34 pm Comments DCP- Discharge Planning Updated by [email or web address]: Josh Mayo on 01/03/18 1:[address] Patient Name: GONZALO HOU Admission Status: ER Accout number: [id number] Admission Date: 12-28-2017 : 1930 Admission Diagnosis:HYPEROSMOLALITY AND HYPERNATREMIA Attending: ZINA MASTERSON Current LOS: 6 Anticipated DC Date: 01-03-2018 Planned Disposition: Nursing Facility [facility] Cert Primary Insurance: MEDICARE A & B PLANNED EXTERNAL PROVIDER: [facility], MEDICARE REHAB BED Discharge Planning Comments: CM MET WITH PT IN ROOM TO DISCUSS DISCHARGE PLANNING AND NEEDS. CM WAS NOT ABLE TO WAKE PT. IMPORTANT MESSAGE FROM MEDICARE LEFT IN ROOM. CM REVIEWED CHART WHICH INDICATES PT IS IN SKILLED NURSING CARE AT [facility], NOTE ON FRONT OF CHART FROM PT'S SPOUSE ASKED TO BE CALLED BEFORE RETURN TO DETENTION. CM CALLED LYUDMILA HOU, , WHO IS IN AGREEMENT WITH PT'S RETURN TO [facility] WHERE PT HAS RESIDED FOR THE PAST TWO YEARS. LYUDMILA REPORTS PT IS UP TO WHEELCHAIR DAILY AT THE DETENTION AND TAKEN TO DINING ROOM IN THE WHEELCHAIR. SPOUSE DENIES DISCHARGE NEEDS, REPORTS [facility] SHOULD PROVIDE WHEELCHAIR VAN TO MAINFRAME PROGRAMMER ANALYST PT. CM INFORMED LYUDMILA THAT IMPORTANT MESSAGE FROM MEDICARE WAS LEFT IN ROOM FOR HER. LYUDMILA DOES NOT PLAN AT THIS TIME TO VISIT BEFORE PT LEAVES. CM EXPLAINED IT WILL BE SENT WITH PT AND HIS BELONGINGS TO [facility]. CM NOTIIFED DAVON OF [facility] AT [phone]. DAVON INFORMED CM THAT PT WILL RETURN TO SKILLED BED AT THE NURSING FACILITY. CM FAXED DISCHARGE INFORMATION TO [facility] AT [phone]. NURSE REPORT TO BE CALLED TO [facility] AT [phone].[facility] TO ARRANGE VAN TRANSPORTATION. Cleaner And Trimmer: Josh Mayo DCPIA - Discharge Planning Initial Assessment Updated by [id number]: Josh Mayo on 01/03/18 10:33 am * Is the patient Alert and Oriented? No * How many steps to enter\exit or inside your home? NONE * PCP DR. MASTERSON * Preadmission Environment Breast Buffer Halfway * Facility Name [facility] * ADLs Partial Dependent * Partial ADLs (Assistance needed) Bathing Dressing Medication Management Toileting Transfers * Equipment Other * Other Equipment ALL MEDICAL EQUIPMENT PROVIDED BY FACILITY * List name and contact numbers for known caregivers / representatives who currently or will assist patient after discharge: KIMBERLY BANKS, * Verbal permission to speak to the caregivers and representatives has been obtained from the patient. N/A * Community resources currently utilized None * Please name any agencies selected above. NONE * Additional services required to return to the preadmission environment? No * Can the patient safely return to the preadmission environment? Yes * Has this patient been hospitalized within the prior 30 days at any hospital? No Coverage Notice Reviewer: [id number] - Josh Mayo Notice Issued Date-Time: 01/03/2018 9:45 Notice Type: IM Discharge Notice Notice Delivered To: Patient Relationship to Patient: Marine Mammal Trainer Name: Delivery Method: - Niyah Days: Prior Verbal Notification: Recipient Understood Notice: Recipient Signature: Med Rec Note Co-signed by Attending: Coverage Notice Comment: DISCUSSED WITH VIA PHONE AT APPROXIMATELY 0950 AM. Last DP export: 01/03/18 1:25 Patient Name: GONZALO HOU Page [id number] at 0353 All edits/amendments must be made on the electronic document DICTATION DATE: 01/03/181432 GUN FERTILIZER: TONJA 01/03/181432 RPT#: [id number] DC DATE: STATUS: ADM IN [facility] [address] [place] [address] END OF REPORT
[~2017-12-27 22:49] MED LIST changes: +TOPROL XL50 MG PO; -VITAMIN E1000 UNIT PO; +VITAMIN E400 UNI2 PO
[2017-12-27] MEDS ORDERED: CATAPRES0.1 MG PO (23:04)
[2017-12-27] MEDS ORDERED: GABAPENTIN100 MG PO (23:04)
[2017-12-27] MEDS ORDERED: HYDROCODON-ACE1 EAC7 PO (23:05)
[2017-12-27 23:41] LABS: BASOPHILS 0.3 % (0-2); EOSINOPHILS 1.2 % (0-7); HEMOGLOBIN 15.3 g/dL (13.5-17.5); IMMATURE GRANULOCYTES 0.9 % (0-5); LYMPHOCYTES 18.3 % (15-50); MCH 32.1 pg (26.0-34.0); MCHC 31.9 g/dL (31.0-37.0); MCV 100.8 fL (80.0-100.0); MEAN PLATELET VOLUME 10.6 fL (7.4-10.4); MONOCYTES 8.7 % (2-11); NEUTROPHILS 70.6 % (40-80); RBC 4.76 10x6/uL (4.20-6.10); RDW 15.4 % (11.5-14.5); WBC 9.1 10x3/uL (4.8-10.8)
[2017-12-27 23:49] LABS: PLATELET COUNT 246 10x3/uL (130-400)
[2017-12-28] VITALS (7 sets, daily range): BP systolic 135–191; BP diastolic 57–100; Ht 180.3 cm; Wt 90.7 kg
[2017-12-28 00:14] LABS: ALBUMIN 2.6 g/dL (3.4-5.0); BILIRUBIN - TOTAL 0.4 mg/dL (0.2-1.3); CALCIUM 9.6 mg/dL (8.5-10.1); CARBON DIOXIDE 31.2 mmol/L (21.0-32.0); CREATININE - SERUM 2.1 mg/dL (0.6-1.3); POTASSIUM - SERUM 3.8 mmol/L (3.5-5.1); PROTEIN - SERUM 7.9 g/dL (6.4-8.2)
[2017-12-28 00:19] LABS: ANION GAP 12.6 mmol/L (8-16)
[2017-12-28 02:02] LABS: APPEARANCE HAZY (CLEAR); BILIRUBIN NEGATIVE (NEGATIVE); COLOR YELLOW (YELLOW); GLUCOSE 50 mg/dL (NEGATIVE); KETONE NEGATIVE (NEGATIVE); NITRITE POSITIVE (NEGATIVE); PROTEIN NEGATIVE (NEGATIVE); UROBILINOGEN NORMAL (NORMAL)
[2017-12-28 02:03] LABS: BACTERIA MANY /hpf (NONE SEEN); EPITHELIAL CELLS RARE /hpf (0-5); WHITE CELLS - URINE >50 /hpf (0-5)
[2017-12-28 15:06] LABS: CALCIUM 8.6 mg/dL (8.5-10.1); CARBON DIOXIDE 30.7 mmol/L (21.0-32.0); CREATININE - SERUM 1.9 mg/dL (0.6-1.3); MAGNESIUM - SERUM 2.2 mg/dL (1.8-2.4); POTASSIUM - SERUM 3.5 mmol/L (3.5-5.1)
[2017-12-28 15:16] LABS: ANION GAP 11.8 mmol/L (8-16)
[2017-12-29 02:11] VITALS: BP 143/72
[2017-12-29 05:22] LABS: BASOPHILS 0.1 % (0-2); EOSINOPHILS 2.2 % (0-7); HEMATOCRIT 45.2 % (42.0-54.0); IMMATURE GRANULOCYTES 0.8 % (0-5); LYMPHOCYTES 23.1 % (15-50); MCH 31.5 pg (26.0-34.0); MCV 101.8 fL (80.0-100.0); MEAN PLATELET VOLUME 10.6 fL (7.4-10.4); MONOCYTES 6.7 % (2-11); NEUTROPHILS 67.1 % (40-80); RBC 4.44 10x6/uL (4.20-6.10); RDW 15.1 % (11.5-14.5); WBC 7.4 10x3/uL (4.8-10.8)
[2017-12-29 05:25] LABS: PLATELET COUNT 188 10x3/uL (130-400)
[2017-12-29 05:28] LABS: ANION GAP 14.5 mmol/L (8-16); CALCIUM 8.3 mg/dL (8.5-10.1); CARBON DIOXIDE 27.2 mmol/L (21.0-32.0); CREATININE - SERUM 1.8 mg/dL (0.6-1.3); POTASSIUM - SERUM 3.7 mmol/L (3.5-5.1)
[2017-12-29 06:40] VITALS: BP 181/113
[2017-12-29 08:42] VITALS: BP 182/104
[2017-12-29 13:12] VITALS: BP 129/72
[2017-12-29 17:08] VITALS: BP 121/65
[2017-12-29 20:30] VITALS: BP 108/53
[2017-12-30 00:30] VITALS: BP 111/54
[2017-12-30 04:30] VITALS: BP 135/67
[2017-12-30 07:56] VITALS: BP 167/75
[2017-12-30 11:53] VITALS: BP 141/85
[2017-12-30 16:14] VITALS: BP 168/69
[2017-12-30 16:53] LABS: ANION GAP 12.4 mmol/L (8-16); CALCIUM 7.5 mg/dL (8.5-10.1); CARBON DIOXIDE 26.1 mmol/L (21.0-32.0); CREATININE - SERUM 1.8 mg/dL (0.6-1.3); POTASSIUM - SERUM 3.5 mmol/L (3.5-5.1)
[2017-12-30 21:14] VITALS: BP 130/70
[2017-12-31 01:15] VITALS: BP 187/83
[2017-12-31 04:45] VITALS: BP 190/90
[2017-12-31 08:47] VITALS: BP 176/95
[2017-12-31 11:34] VITALS: BP 176/91
[2017-12-31 15:53] VITALS: BP 136/75
[2017-12-31 21:46] VITALS: BP 127/70
[2018-01-01 02:34] VITALS: BP 152/83
[2018-01-01 05:29] LABS: ANION GAP 11.3 mmol/L (8-16); CREATININE - SERUM 1.6 mg/dL (0.6-1.3); POTASSIUM - SERUM 3.3 mmol/L (3.5-5.1)
[2018-01-01 06:34] VITALS: BP 128/84
[2018-01-01 08:20] VITALS: BP 160/87
[2018-01-01 12:23] VITALS: BP 143/77
[2018-01-01 16:10] VITALS: BP 131/70
[2018-01-01 20:36] VITALS: BP 153/75
[2018-01-02] VITALS: BP 137/78
[2018-01-02 04:00] VITALS: BP 157/80
[2018-01-02 06:38] LABS: ANION GAP 12.4 mmol/L (8-16); CALCIUM 8.1 mg/dL (8.5-10.1); CARBON DIOXIDE 27.4 mmol/L (21.0-32.0); CREATININE - SERUM 1.5 mg/dL (0.6-1.3)
[2018-01-02 06:39] LABS: POTASSIUM - SERUM 3.8 mmol/L (3.5-5.1)
[2018-01-02 08:35] VITALS: BP 135/74
[2018-01-02 11:50] VITALS: BP 149/79
[2018-01-02 15:44] VITALS: BP 99/50
[2018-01-02 20:00] VITALS: BP 156/88
[2018-01-03 04:00] VITALS: BP 148/88
[2018-01-03 06:13] LABS: ANION GAP 11.6 mmol/L (8-16); CALCIUM 8.3 mg/dL (8.5-10.1); CARBON DIOXIDE 27.8 mmol/L (21.0-32.0); CREATININE - SERUM 1.3 mg/dL (0.6-1.3); POTASSIUM - SERUM 3.4 mmol/L (3.5-5.1)
[2018-01-03 08:13] VITALS: BP 163/76
[2018-01-03] MEDS ORDERED: [UNRECOGNIZED DRUG - OTHER] IM (12:46)
== END 2018-01-03 14:30 | DRG 640 ==
LOC: D.ER 22:49 → D.M2 12-28 02:22 → D.EDHOLD 12-28 02:22 → D.M2 12-28 06:23
PROVIDERS: Family Medicine
DX: E87.0 Hyperosmolality and hypernatremia (principal); G93.41 Metabolic encephalopathy; N39.0 Urinary tract infection, site not specified; T85.09XA Other mechanical complication of ventricular intracranial (communicating) shunt, initial encounter; E86.0 Dehydration; E11.9 Type 2 diabetes mellitus without complications; F03.90 Unspecified dementia, unspecified severity, without behavioral disturbance, psychotic disturbance, mood disturbance, and anxiety; I48.91 Unspecified atrial fibrillation; Z95.0 Presence of cardiac pacemaker; I10 Essential (primary) hypertension; E78.5 Hyperlipidemia, unspecified; B96.20 Unspecified Escherichia coli [E. coli] as the cause of diseases classified elsewhere; E87.6 Hypokalemia; H10.9 Unspecified conjunctivitis; R13.10 Dysphagia, unspecified; Y83.8 Other surgical procedures as the cause of abnormal reaction of the patient, or of later complication, without mention of misadventure at the time of the procedure

== ENCOUNTER 2018-08-12 20:36 | Inpatient (IN) | payer MEDICARE ==
[~2018-08-12] VITALS: Ht 180.3 cm; Wt 83.9 kg
[~2018-08-12 20:36] MED LIST changes: +CATAPRES0.1 MG PO; +HYDROCODON-ACE1 EAC7 PO; +[UNRECOGNIZED DRUG - OTHER] IM
[2018-08-12] MEDS ORDERED: LASIX20 MG PO (20:51)
[2018-08-12] MEDS ORDERED: LANTUS INSULIN10 ML SC (20:51)
[2018-08-12] MEDS ORDERED: K-TAB10 MEQ PO (20:52)
[2018-08-12 21:42] LABS: ANION GAP 8.7 mmol/L (8-16); BILIRUBIN - TOTAL 0.48 mg/dL (0.2-1.3); CALCIUM 9.3 mg/dL (8.5-10.1); CARBON DIOXIDE 35.4 mmol/L (21.0-32.0); CREATININE - SERUM 2.2 mg/dL (0.6-1.3); POTASSIUM - SERUM 3.1 mmol/L (3.5-5.1); PROTEIN - SERUM 8.1 g/dL (6.4-8.2)
[2018-08-12 21:50] LABS: BASOPHILS 0.1 % (0-2); EOSINOPHILS 0.5 % (0-7); HEMATOCRIT 49.2 % (42.0-54.0); HEMOGLOBIN 15.5 g/dL (13.5-17.5); IMMATURE GRANULOCYTES 0.6 % (0-5); LYMPHOCYTES 13.1 % (15-50); MCH 31.1 pg (26.0-34.0); MCHC 31.5 g/dL (31.0-37.0); MCV 98.6 fL (80.0-100.0); MEAN PLATELET VOLUME 10.5 fL (7.4-10.4); MONOCYTES 6.6 % (2-11); NEUTROPHILS 79.1 % (40-80); PLATELET COUNT 211 10x3/uL (130-400); RBC 4.99 10x6/uL (4.20-6.10); RDW 14.9 % (11.5-14.5); WBC 8.8 10x3/uL (4.8-10.8)
--- NOTE | 2018-08-13 01:46 | NUR ---
NURSE CALLED [facility] CAST[facility] TO UPDATE THEM ON PT BEING ADMITTED. SPOKE WITH NURSE BRYAN.
[2018-08-13] MEDS ORDERED: HYDROCORTISONE30 G9 TOPICAL (02:46)
[2018-08-13] MEDS ORDERED: NIZORAL 2 % SH120 ML TOPICAL ×3 (02:49→02:53)
[2018-08-13] MEDS ORDERED: ERYTHROMYCIN OPT1 GM EACH EYE (02:56)
[2018-08-13] MEDS ORDERED: ACETAMINOPHEN500 M1 PO (02:57)
[2018-08-13 03:17] VITALS: BP 143/82; BMI 25.8
[2018-08-13 04:00] VITALS: BP 112/85
[2018-08-13 06:21] LABS: MAGNESIUM - SERUM 2.3 mg/dL (1.8-2.4); PHOSPHOROUS 3.4 mg/dL (2.5-4.9)
[2018-08-13 08:00] VITALS: BP 143/84
[2018-08-13 09:30] LABS: HEMATOCRIT 45.5 % (42.0-54.0); HEMOGLOBIN 14.5 g/dL (13.5-17.5); LYMPHOCYTES 22.2 % (15-50); MCH 31.3 pg (26.0-34.0); MCHC 31.9 g/dL (31.0-37.0); MCV 98.3 fL (80.0-100.0); MEAN PLATELET VOLUME 10.6 fL (7.4-10.4); NEUTROPHILS 70.7 % (40-80); PLATELET COUNT 189 10x3/uL (130-400); RBC 4.63 10x6/uL (4.20-6.10)
[2018-08-13 09:33] LABS: WBC 6.4 10x3/uL (4.8-10.8)
[2018-08-13 10:04] LABS: ALBUMIN 2.6 g/dL (3.4-5.0); ANION GAP 13.3 mmol/L (8-16); BILIRUBIN - TOTAL 0.52 mg/dL (0.2-1.3); CALCIUM 8.9 mg/dL (8.5-10.1); CARBON DIOXIDE 30.9 mmol/L (21.0-32.0); CREATININE - SERUM 2.2 mg/dL (0.6-1.3); POTASSIUM - SERUM 3.2 mmol/L (3.5-5.1); PROTEIN - SERUM 7.2 g/dL (6.4-8.2)
[2018-08-13 11:04] VITALS: Ht 180.3 cm; Wt 83.9 kg
--- NOTE | 2018-08-13 12:16 | NUR ---
PT RESTING IN BED. NO SIGNS OF DISTRESS. IV TO RIGHT AC PATENT NO REDNESS OR TENDERNESS. ALL FALL PRECAUTIONS IN PLACE. DENIES ANY NEED AT THIS TIME. CALL LIGHT IN REACH. BED LOW POSITION. FAMILY AT BEDSIDE.
[2018-08-13 15:10] VITALS: BP 140/67
--- NOTE | 2018-08-13 18:10 | NUR ---
I have reviewed this patient and I concur with the Shift Assessment completed by the Licensed Practical Nurse today this shift.
[2018-08-13 20:36] LABS: APPEARANCE HAZY (CLEAR); BILIRUBIN NEGATIVE (NEGATIVE); COLOR YELLOW (YELLOW); GLUCOSE 50 mg/dL (NEGATIVE); KETONE NEGATIVE (NEGATIVE); NITRITE POSITIVE (NEGATIVE); PROTEIN TRACE mg/dL (NEGATIVE); SPECIFIC GRAVITY 1.015 (1.005-1.020); UROBILINOGEN NORMAL (NORMAL)
[2018-08-13 20:37] LABS: WHITE CELLS - URINE 25-50 /hpf (0-5)
[2018-08-13 20:38] LABS: BACTERIA MANY /hpf (NONE SEEN); RED CELLS - URINE 0-5 /hpf (0-5)
[2018-08-13 21:01] VITALS: BP 140/79
[2018-08-14 00:48] VITALS: BP 174/86
[2018-08-14 05:25] VITALS: BP 156/78
[2018-08-14 06:42] LABS: BASOPHILS 0.1 % (0-2); EOSINOPHILS 2.1 % (0-7); HEMATOCRIT 43.7 % (42.0-54.0); HEMOGLOBIN 13.7 g/dL (13.5-17.5); IMMATURE GRANULOCYTES 0.7 % (0-5); LYMPHOCYTES 24.1 % (15-50); MCH 31.1 pg (26.0-34.0); MCHC 31.4 g/dL (31.0-37.0); MCV 99.3 fL (80.0-100.0); MEAN PLATELET VOLUME 10.8 fL (7.4-10.4); MONOCYTES 5.5 % (2-11); NEUTROPHILS 67.5 % (40-80); PLATELET COUNT 189 10x3/uL (130-400); RDW 14.9 % (11.5-14.5); WBC 7.6 10x3/uL (4.8-10.8)
[2018-08-14 06:52] LABS: ALBUMIN 2.5 g/dL (3.4-5.0); ANION GAP 10.3 mmol/L (8-16); BILIRUBIN - TOTAL 0.38 mg/dL (0.2-1.3); CARBON DIOXIDE 31.3 mmol/L (21.0-32.0); MAGNESIUM - SERUM 2.3 mg/dL (1.8-2.4); PHOSPHOROUS 2.8 mg/dL (2.5-4.9); POTASSIUM - SERUM 3.6 mmol/L (3.5-5.1); PROTEIN - SERUM 6.9 g/dL (6.4-8.2)
--- NOTE | 2018-08-14 07:46 | NUR ---
LAB CALLED WITH A CRITICAL CHLORIDE OF 120 CALL TO TECHNICAL INFORMATION SPECIALIST SHANKAR RESENDEZ RETRUNED CALLED STATED OK.
[2018-08-14 09:19] VITALS: BP 107/88
[2018-08-14 12:56] VITALS: BP 166/82
--- NOTE | 2018-08-14 14:29 | NUR ---
PATIENT VERY SLEEPY FROM BEGINNING OF SHIFT UNTIL THIS TIME, PATIENTS FAMILY ASSISTED HIM WITH MEAL
--- NOTE | 2018-08-14 14:51 | MORECARE ---
CASE MANAGEMENT DISCHARGE SUMMARY PATIENT: GONZALO HOU UNIT: [id number] ADM DATE: 08/13/18 AGE: 88 : 29 SEX: M ROOM/BED: D.2227 AUTHOR: DASHA WINTERS PHYSICIAN: REFERRING PHYSICIAN: ADRIEL NIETO MD DATE OF SERVICE: 08/14/18 Discharge Plan Patient Name: GONZALO HOU Facility: [facility]:[place] : 1930 Planned Disposition: [facility] w Plan Readm Anticipated Discharge Date: Discharge Date: Expected LOS: Initial Reviewer: [id number] Initial Review Date: 08/14/2018 Generated: 08/14/18 3:51 pm Comments DCP- Discharge Planning Updated by [id number]: Claudia Dilladr on 08/14/18 1:[address] Patient Name: GONZALO HOU Admission Status: ER Accout number: [id number] Admission Date: 08-13-2018 : 1930 Admission Diagnosis: Attending: ADRIEL NIETO Current LOS: 1 Anticipated DC Date: Planned Disposition: [facility] w Plan Readm Primary Insurance: MEDICARE A & B Discharge Planning Comments: CM met with patient and his daughter (Ariane Tony) in the room to discuss discharge planning/needs. Patient is sleeping through assessment. His daughter states he has lived at [facility] for about 2 years. States he is completely dependent on the nursing staff there. States that he is able to sit in a wheelchair and they take him to his appointments in their van. States plan is to return to [facility] on discharge. CM will continue to follow and assist with discharge planning/needs. Timber Feller: Claudia Dillard Coverage Notice Reviewer: [id number] - Claudia Dillard Notice Issued Date-Time: 08/14/2018 11:10 Notice Type: Patient Choice Letter Notice Delivered To: Family Member Relationship to Patient: Daughter Regional Tanker Truck Driver Name: Ariane Tony Delivery Method: HAND - Hand Delivered Niyah Days: Prior Verbal Notification: Recipient Understood Notice: Yes Recipient Signature: Yes Med Rec Note Co-signed by Attending: Coverage Notice Comment: [facility] for [facility] Patient Name: GONZALO HOU Page [id number] at 1451 All edits/amendments must be made on the electronic document DICTATION DATE: 08/14/181450 FABRICATION MACHINE OPERATOR: TONJA 08/14/181450 RPT#: [id number] DC DATE: STATUS: ADM IN [facility] [address] [place] [address] END OF REPORT
[2018-08-14 18:33] VITALS: BP 159/96
--- NOTE | 2018-08-14 19:45 | NUR ---
PT SITTING UP IN BED WITHOUT DISTRESS, ORIENTED TO SELF ONLY. IV RIGHT FA INFUSING D5W @ 125. SCDS ON BILAT. FALL PRECAUTIONS IN PLACE. ELLI ON. BED LOWEST POSITION, SRX2, CL IN REACH. WILL CTM
[2018-08-14 20:00] VITALS: BP 95/74
[2018-08-15] VITALS: BP 149/47
--- NOTE | 2018-08-15 00:30 | NUR ---
PT RECIEVED BATH AND LINENS CHANGED AT THIS TIME. PT INCONTINENT OF URINE AND HAD SMALL BM
[2018-08-15 04:00] VITALS: BP 138/55
--- NOTE | 2018-08-15 04:30 | NUR ---
IV RIGHT FA INFILTRATED. DC'D WITH CATHETER TIP INTACT. 22G IV RESITED RIGHT WRIST X3 ATTEMPTS
[2018-08-15 05:12] LABS: BASOPHILS 0.1 % (0-2); EOSINOPHILS 2.3 % (0-7); HEMATOCRIT 41.2 % (42.0-54.0); HEMOGLOBIN 13.1 g/dL (13.5-17.5); IMMATURE GRANULOCYTES 0.9 % (0-5); LYMPHOCYTES 17.3 % (15-50); MCHC 31.8 g/dL (31.0-37.0); MCV 97.4 fL (80.0-100.0); MEAN PLATELET VOLUME 10.7 fL (7.4-10.4); MONOCYTES 6.3 % (2-11); NEUTROPHILS 73.1 % (40-80); PLATELET COUNT 174 10x3/uL (130-400); RBC 4.23 10x6/uL (4.20-6.10); RDW 14.7 % (11.5-14.5); WBC 7.5 10x3/uL (4.8-10.8)
[2018-08-15 05:38] LABS: ANION GAP 11.5 mmol/L (8-16); CALCIUM 8.6 mg/dL (8.5-10.1); CARBON DIOXIDE 28.6 mmol/L (21.0-32.0); CREATININE - SERUM 2.1 mg/dL (0.6-1.3); PHOSPHOROUS 2.5 mg/dL (2.5-4.9); POTASSIUM - SERUM 3.1 mmol/L (3.5-5.1)
[2018-08-15 09:09] VITALS: BP 172/83
--- NOTE | 2018-08-15 10:15 | NUR ---
RD follow up: Patient asleep at time of visit. Observed 0% of breakfast tray eaten. stated he woke up late yesterday afternoon and ate a few bites of dinner tray. Patient drinking some Ensured drinks per . Will continue to montior. May need alternate nutrition if unable to meet needs orally. RD following
--- NOTE | 2018-08-15 12:38 | NUR ---
PT RESTING IN BED. NO SIGNS OF DISTRESS. IV TO RIGHT WRIST PATENT NO REDNESS OR TENDERNESS. ALL FALL PRECAUTIONS IN PLACE. DENIES ANY FUTHER NEED AT THIS TIME. CALL LIGHT IN REACH. BED LOW POSITION. FAMILY AT BEDSIDE.
[2018-08-15 13:28] VITALS: BP 128/65
--- NOTE | 2018-08-15 14:21 | NUR ---
I have reviewed this patient and I concur with the Shift Assessment completed by the Licensed Practical Nurse today this shift.
[2018-08-15 16:17] VITALS: BP 126/69
--- NOTE | 2018-08-15 20:00 | NUR ---
PT SITTING UP IN BED WITHOUT DISTRESS, ORIENTED TO SELF ONLY. PT VERY TALKATIVE AT THIS TIME. PT CALLS OUT INTO HALLWAY TELLING PASSERBYS TO COME HERE. UPON ENTERING PT ROOM HE DOES NOT STATE ANY NEEDS BUT WANTS SOMEONE IN THE ROOM WITH HIM. PLEASANTLY CONFUSED, FOLLOWS COMMANDS. PROVIDED THICKENED WATER. IV RIGHT WRIST INFUSING D5W @ 125. CONTACT ISOLATION IN PLACE. SCDS ON. PT INCONTINENT OF BOWEL AND BLADDER AT THIS TIME, CLEANED AND CHANGED LINENS. ELLI ON. BED LOW AND LOCKED, CL IN REACH. WILL CTM
[2018-08-15 20:38] VITALS: BP 152/83
[2018-08-16 01:22] VITALS: BP 170/80
--- NOTE | 2018-08-16 01:45 | NUR ---
PT INCONTINENT OF BOWEL AND BLADDER, GAVE PT BATH AND CHANGED LINEN. SCDS ON, NON SLIP SOCKS, YELLOW GOWN. ELLI ON
--- NOTE | 2018-08-16 02:40 | NUR ---
PT PULLED OUT IV TO RIGHT WRIST WITH CATHETER TIP INTACT. 22G IV RESITED IN RIGHT WRIST X1 ATTEMPT. WRAPPED IN KERLEX AND STOCKING
[2018-08-16 05:40] VITALS: BP 120/67
[2018-08-16 07:18] LABS: BASOPHILS 0.1 % (0-2); EOSINOPHILS 2.4 % (0-7); HEMATOCRIT 40.3 % (42.0-54.0); HEMOGLOBIN 13.1 g/dL (13.5-17.5); IMMATURE GRANULOCYTES 1.1 % (0-5); LYMPHOCYTES 18.4 % (15-50); MCH 30.8 pg (26.0-34.0); MCHC 32.5 g/dL (31.0-37.0); MEAN PLATELET VOLUME 10.5 fL (7.4-10.4); MONOCYTES 7.7 % (2-11); NEUTROPHILS 70.3 % (40-80); PLATELET COUNT 158 10x3/uL (130-400); RBC 4.26 10x6/uL (4.20-6.10); RDW 14.5 % (11.5-14.5); WBC 7.8 10x3/uL (4.8-10.8)
[2018-08-16 07:31] LABS: ANION GAP 14.2 mmol/L (8-16); CALCIUM 8.5 mg/dL (8.5-10.1); CARBON DIOXIDE 26.3 mmol/L (21.0-32.0); CREATININE - SERUM 1.9 mg/dL (0.6-1.3); MAGNESIUM - SERUM 1.8 mg/dL (1.8-2.4); PHOSPHOROUS 2.2 mg/dL (2.5-4.9); POTASSIUM - SERUM 3.5 mmol/L (3.5-5.1)
[2018-08-16 08:00] LABS: MCV 94.6 fL (80.0-100.0)
[2018-08-16 08:50] VITALS: BP 145/89
[2018-08-16 12:57] VITALS: BP 138/72
--- NOTE | 2018-08-16 14:25 | NUR ---
NUTRITION F/U PT REMAINS IN ISOLATION. FAMILY AT BEDSIDE. REPORTS IMPROVED PO INTAKE AT [facility] TODAY(~50%). WILL CONTINUE TO PROVIDE DIET, MONITOR PO INTAKE. RD FOLLOWING
[2018-08-16 16:58] VITALS: BP 145/82
[2018-08-16 20:22] VITALS: BP 148/73
--- NOTE | 2018-08-16 21:35 | NUR ---
CHECKED PT FSBS 443, GIVEN 12 UNITS HUMULIN R ORDERED.
--- NOTE | 2018-08-16 23:45 | NUR ---
RECHECKED PT FSBS 407. CALLED ARCADIO MARTIN. ORDERED MICHAEL RESISTANT SCALE HUMULIN R FOR PT. 28 UNITS HUMULIN R GIVEN ORDERED.
[2018-08-17 00:45] VITALS: BP 138/70
[2018-08-17 05:18] LABS: BASOPHILS 0.3 % (0-2); EOSINOPHILS 4.3 % (0-7); HEMATOCRIT 37.8 % (42.0-54.0); HEMOGLOBIN 12.4 g/dL (13.5-17.5); LYMPHOCYTES 20.9 % (15-50); MCHC 32.8 g/dL (31.0-37.0); MCV 94.5 fL (80.0-100.0); MEAN PLATELET VOLUME 10.7 fL (7.4-10.4); MONOCYTES 5.8 % (2-11); NEUTROPHILS 66.7 % (40-80); PLATELET COUNT 161 10x3/uL (130-400); RDW 14.2 % (11.5-14.5); WBC 6.5 10x3/uL (4.8-10.8)
[2018-08-17 05:26] VITALS: BP 145/65
[2018-08-17 05:35] LABS: CALCIUM 8.8 mg/dL (8.5-10.1); CARBON DIOXIDE 28.1 mmol/L (21.0-32.0); CREATININE - SERUM 1.7 mg/dL (0.6-1.3); POTASSIUM - SERUM 3.1 mmol/L (3.5-5.1)
--- NOTE | 2018-08-17 06:40 | NUR ---
I have reviewed this patient and I concur with the Shift Assessment completed by the Licensed Practical Nurse today this shift.
[2018-08-17 08:42] VITALS: BP 152/78
--- NOTE | 2018-08-17 09:30 | NUR ---
LETHARGIC, RESPONSIVE TO PAINFUL STIMULI, EVEN UNLABORED BREATHING, FALL PRECAUTIONS IN PLACE, FBS OF 54. ADMINISTERED D50 IV PER PROTOCOL. EYES SPONTANEOUSLY OPENED, NON-VERBAL REPSONSE WHEN CALLED NAME, SMALL BM, INCONTINENT OF B AND B, IV TO RIGHT HAND, PATENT, INFUSING D5NS AT 125ML/HR. DENIES ANY OTHER NEEDS OR DISCOMFORTS, BED LOWERED AND LOCKED, ELLI ALARM ON, CALL LIGHT WITHIN REACH. CPOC
--- NOTE | 2018-08-17 11:13 | NUR ---
RECHECK FBS WAS 91. NON-VERBAL RESPONSES TO LIGHT STIMULI. FAMILY MEMBER PRESENT IN ROOM, BED LOWERED AND LOCKED, CALL LIGHT WITHIN REACH. CPOC
[2018-08-17 12:37] VITALS: BP 151/75
[2018-08-17 18:21] VITALS: BP 159/91
[2018-08-17 21:43] VITALS: BP 103/70
[2018-08-18 00:56] VITALS: BP 141/77
--- NOTE | 2018-08-18 03:23 | NUR ---
I have reviewed this patient and I concur with the Shift Assessment completed by the Licensed Practical Nurse today this shift.
[2018-08-18 04:00] VITALS: BP 126/68
--- NOTE | 2018-08-18 04:00 | NUR ---
PT IS ALERT, BUT VERY CONFUSED. DOES NOT ANSWER QUESTIONS, BUT TALKING FREQUENTLY. PT UNAWARE OF INCONTINENCE EPISODE. PT CLEANED AND LINENS CHANGED. JABIER CARE PROVIDED. URINE APPEARED LIGHT YELLOW AND STOOL WAS LOOSE, AND LIGHT BROWN. PT WAS CONFUSED AND ANGERED BY BEDDING CHANGE AND BATH, ATTEMPTED TO ORIENT HIM TO SITUATION WITHOUT SUCCESS. PT WAS HOLDING FIST UP THREATENING TO THROW HIS PUNCH AND CALL HIS PREACHER IF WE DIDN'T STOP CLEANING HIM UP. LINEN CHANGE WAS COMPLETED. BED IN LOW POSITION, ELLI ALARM IN USE. WITH CONTINUE TO MONITOR.
[2018-08-18 05:26] LABS: BASOPHILS 0.1 % (0-2); EOSINOPHILS 4.7 % (0-7); HEMATOCRIT 39.1 % (42.0-54.0); HEMOGLOBIN 12.8 g/dL (13.5-17.5); IMMATURE GRANULOCYTES 2.4 % (0-5); LYMPHOCYTES 20.1 % (15-50); MCH 30.6 pg (26.0-34.0); MCHC 32.7 g/dL (31.0-37.0); MCV 93.5 fL (80.0-100.0); MEAN PLATELET VOLUME 10.6 fL (7.4-10.4); MONOCYTES 7.7 % (2-11); PLATELET COUNT 172 10x3/uL (130-400); RBC 4.18 10x6/uL (4.20-6.10); RDW 14.4 % (11.5-14.5); WBC 6.8 10x3/uL (4.8-10.8)
[2018-08-18 05:40] LABS: ANION GAP 9.7 mmol/L (8-16); CALCIUM 8.5 mg/dL (8.5-10.1); CARBON DIOXIDE 29.4 mmol/L (21.0-32.0); CREATININE - SERUM 1.6 mg/dL (0.6-1.3); MAGNESIUM - SERUM 1.9 mg/dL (1.8-2.4); PHOSPHOROUS 2.7 mg/dL (2.5-4.9); POTASSIUM - SERUM 3.1 mmol/L (3.5-5.1)
--- NOTE | 2018-08-18 08:40 | NUR ---
EYES CLOSED, EASILY AROUSED BY VOICE, IV TO RIGHT HAND, PATENT, INFUSING 125 ML/HR, SITE C/D, NO REDNESS OR SWELLING TO SITE, CONTACT ISOLATION, ON ROOM AIR, INCONTIENT OF BOWEL AND BLADDER, CLEAN AND DRY AT CURRENT TIME, BED LOWERED AND LOCKED, CALL LIGHT WITHIN REACH. CPOC
[2018-08-18 09:25] VITALS: BP 170/91
[2018-08-18 12:32] VITALS: BP 147/83
[2018-08-18 17:39] VITALS: BP 140/81
--- NOTE | 2018-08-18 19:07 | NUR ---
arouses to voice, poor appetite, consumed less than 10% of each meal. two large bms, iv to right hand, patent, infusing d5w at 125ml/hr. on room air, total assist, bed lowered and locked, call light within reach. cpoc
[2018-08-18 20:59] VITALS: BP 150/74
[2018-08-19 02:08] VITALS: BP 153/77
[2018-08-19 05:53] VITALS: BP 143/63
--- NOTE | 2018-08-19 06:00 | NUR ---
IV INFILTRATED,DC'D WITH CATHETER INTACT. RN RESITED 22G IV TO RIGHT FOREARM W/O ISSUES. FSBS 41, PT LETHARGIC AND WILL NOT DRINK/EAT ANYTHING
[2018-08-19 06:40] LABS: BASOPHILS 0.2 % (0-2); EOSINOPHILS 3.8 % (0-7); HEMATOCRIT 37.5 % (42.0-54.0); HEMOGLOBIN 12.6 g/dL (13.5-17.5); LYMPHOCYTES 24.2 % (15-50); MCH 30.9 pg (26.0-34.0); MCHC 33.6 g/dL (31.0-37.0); MCV 91.9 fL (80.0-100.0); MEAN PLATELET VOLUME 10.6 fL (7.4-10.4); MONOCYTES 7.7 % (2-11); NEUTROPHILS 62.1 % (40-80); PLATELET COUNT 201 10x3/uL (130-400); RBC 4.08 10x6/uL (4.20-6.10); RDW 14.2 % (11.5-14.5); WBC 6.7 10x3/uL (4.8-10.8)
[2018-08-19 06:55] LABS: ANION GAP 10.3 mmol/L (8-16); CALCIUM 9.4 mg/dL (8.5-10.1); CARBON DIOXIDE 27.6 mmol/L (21.0-32.0); CREATININE - SERUM 1.4 mg/dL (0.6-1.3); MAGNESIUM - SERUM 2.1 mg/dL (1.8-2.4); PHOSPHOROUS 2.7 mg/dL (2.5-4.9)
[2018-08-19 07:15] LABS: POTASSIUM - SERUM 2.9 mmol/L (3.5-5.1)
[2018-08-19 09:00] VITALS: BP 133/66
--- NOTE | 2018-08-19 12:34 | MORECARE ---
CASE MANAGEMENT DISCHARGE SUMMARY PATIENT: GONZALO HOU UNIT: [id number] ADM DATE: 08/13/18 AGE: 88 : 29 SEX: M ROOM/BED: D.2227 AUTHOR: DASHA WINTERS PHYSICIAN: REFERRING PHYSICIAN: ADRIEL NIETO MD DATE OF SERVICE: 08/19/18 Discharge Plan Patient Name: GONZALO HOU Facility: [facility]:[place] : 1930 Planned Disposition: [facility] w Plan Readm Anticipated Discharge Date: Discharge Date: Expected LOS: Initial Reviewer: [id number] Initial Review Date: 08/14/2018 Generated: 08/19/18 1:34 pm DCP- Discharge Planning Updated by [email or web address]: Claudia Dillard on 08/14/18 1:[address] Patient Name: GONZALO HOU Admission Status: ER Accout number: [id number] Admission Date: 08-13-2018 : 1930 Admission Diagnosis: Attending: ADRIEL NIETO Current LOS: 1 Anticipated DC Date: Planned Disposition: [facility] w Plan Readm Primary Insurance: MEDICARE A & B Discharge Planning Comments: CM met with patient and his daughter (Ariane Tony) in the room to discuss discharge planning/needs. Patient is sleeping through assessment. His daughter states he has lived at [facility] for about 2 years. States he is completely dependent on the nursing staff there. States that he is able to sit in a wheelchair and they take him to his appointments in their van. States plan is to return to [facility] on discharge. CM will continue to follow and assist with discharge planning/needs. Cutting Torch Operator: Claudia Dillard External Providers External Provider: [facility] Next Contact Date: Service Request Date: Service Type: Resolution: Reviewer: Comments: Coverage Notice Reviewer: [id number] - Claudia Dillard Notice Issued Date-Time: 08/14/2018 11:10 Notice Type: Patient Choice Letter Notice Delivered To: Family Member Relationship to Patient: Daughter Lead Carpenter Name: Ariane Tony Delivery Method: HAND - Hand Delivered Niyah Days: Prior Verbal Notification: Recipient Understood Notice: Yes Recipient Signature: Yes Med Rec Note Co-signed by Attending: Coverage Notice Comment: SOBIA for Alexander Galicia Last DP export: 08/14/18 1:51 p Patient Name: GONZALO HOU Page 44114 at 1234 All edits/amendments must be made on the electronic document DICTATION DATE: 08/19/18 1234 SHOE TREER: TONJA 08/19/18 1234 RPT#: [id number] DC DATE: STATUS: ADM IN [facility] [address] [place] [address] END OF REPORT
[2018-08-19 13:45] VITALS: BP 142/75
[2018-08-19 16:43] VITALS: BP 164/78
--- NOTE | 2018-08-19 18:48 | NUR ---
I have reviewed this patient and I concur with the Shift Assessment completed by the Licensed Practical Nurse today this shift.
--- NOTE | 2018-08-19 19:45 | NUR ---
PT LYING IN BED RESTING, AWAKENS TO VERBAL STIMULI. ORIENTED TO SELF ONLY. SPEECH GARBLED AT TIMES. HARD OF HEARING. IV RT WRIST INFUSING D5 @ 100. CONTACT ISOLATION IN PLACE. SCDS ON BILAT. WITHOUT NEEDS AT THIS TIME. ELLI ON, BED LOWEST POSITION, SRX2. CL IN REACH, WILL CTM
[2018-08-19 20:00] VITALS: BP 160/92
[2018-08-20 01:17] VITALS: BP 139/55
[2018-08-20 05:20] VITALS: BP 150/84
[2018-08-20 05:44] LABS: BASOPHILS 0.2 % (0-2); EOSINOPHILS 4.6 % (0-7); HEMATOCRIT 35.8 % (42.0-54.0); IMMATURE GRANULOCYTES 1.4 % (0-5); LYMPHOCYTES 19.6 % (15-50); MCH 30.8 pg (26.0-34.0); MCHC 33.5 g/dL (31.0-37.0); MCV 91.8 fL (80.0-100.0); MEAN PLATELET VOLUME 10.6 fL (7.4-10.4); MONOCYTES 8.3 % (2-11); NEUTROPHILS 65.9 % (40-80); PLATELET COUNT 200 10x3/uL (130-400); RDW 14.4 % (11.5-14.5); WBC 6.5 10x3/uL (4.8-10.8)
[2018-08-20 06:01] LABS: ALBUMIN 2.2 g/dL (3.4-5.0); ANION GAP 12.1 mmol/L (8-16); BILIRUBIN - TOTAL 0.34 mg/dL (0.2-1.3); CALCIUM 8.4 mg/dL (8.5-10.1); CARBON DIOXIDE 25.4 mmol/L (21.0-32.0); CREATININE - SERUM 1.4 mg/dL (0.6-1.3); MAGNESIUM - SERUM 1.8 mg/dL (1.8-2.4); PROTEIN - SERUM 6.1 g/dL (6.4-8.2)
[2018-08-20 06:02] LABS: POTASSIUM - SERUM 3.5 mmol/L (3.5-5.1)
[2018-08-20 09:00] VITALS: BP 102/61; BP 138/75
[2018-08-20 12:00] VITALS: BP 157/85
--- NOTE | 2018-08-20 13:18 | MORECARE ---
CASE MANAGEMENT DISCHARGE SUMMARY PATIENT: GONZALO HOU UNIT: [id number] ADM DATE: 08/13/18 AGE: 88 : 29 SEX: M ROOM/BED: D.2227 AUTHOR: VIANEY,DOC PHYSICIAN: REFERRING PHYSICIAN: ADRIEL NIETO MD DATE OF SERVICE: 08/20/18 Discharge Plan Patient Name: GONZALO HOU Facility: [facility]:[place] : 1930 Planned Disposition: [facility] w Plan Readm Anticipated Discharge Date: Discharge Date: Expected LOS: Initial Reviewer: [email or web address] Initial Review Date: 08/14/2018 Generated: 08/20/18 2:18 pm Comments DCP- Discharge Planning Updated by [email or web address]: Claudia Dillard on 08/20/18 12:[address] Anticipate discharge today or tomorrow. I called [facility] and he will be going to a skilled bed. I informed Regina of his contact isolation status and she states "that is no problem". She states to call herself or nurse, Sierra, if she is not available when discharge orders are received. Updated clinical faxed to [phone]. CM will continue to follow and assist with discharge planning/needs. DCP- Discharge Planning Updated by [id number]: Claudia Dillard on 08/14/18 1:[address] Patient Name: GONZALO HOU Admission Status: ER Accout number: [id number] Admission Date: 08-13-2018 : 1930 Admission Diagnosis: Attending: ADRIEL NIETO Current LOS: 1 Anticipated DC Date: Planned Disposition: [facility] w Plan Readm Primary Insurance: MEDICARE A & B Discharge Planning Comments: CM met with patient and his daughter (Ariane Tony) in the room to discuss discharge planning/needs. Patient is sleeping through assessment. His daughter states he has lived at [facility] for about 2 years. States he is completely dependent on the nursing staff there. States that he is able to sit in a wheelchair and they take him to his appointments in their van. States plan is to return to [facility] on discharge. CM will continue to follow and assist with discharge planning/needs. Head Stock Operator: Claudia Dillard Coverage Notice Reviewer: [id number] - Claudia Dillard Notice Issued Date-Time: 08/14/2018 11:10 Notice Type: Patient Choice Letter Notice Delivered To: Family Member Relationship to Patient: Daughter Replanting Machine Crew Name: Ariane Tony Delivery Method: HAND - Hand Delivered Niyah Days: Prior Verbal Notification: Recipient Understood Notice: Yes Recipient Signature: Yes Med Rec Note Co-signed by Attending: Coverage Notice Comment: SOBIA for [facility] Last DP export: 08/19/18 11:34 am Patient Name: GONZALO HOU Page 46419 at 1318 All edits/amendments must be made on the electronic document DICTATION DATE: 08/20/187 PROFESSOR OF RHETORIC: TONJA 08/20/18 1317 RPT#: [id number] DC DATE: STATUS: ADM IN [facility] [address] [place] [address] END OF REPORT
--- NOTE | 2018-08-20 16:32 | NUR ---
OT NOTE: PT COMPLETED BUE PROM TO DECREASE RISK OF SKIN BREAKDOWN. THANK YOU, JESSICA STORY
[2018-08-20 17:06] VITALS: BP 128/1
--- NOTE | 2018-08-20 18:55 | NUR ---
I have reviewed this patient and I concur with the Shift Assessment completed by the Licensed Practical Nurse today this shift.
--- NOTE | 2018-08-20 19:30 | NUR ---
PT LYING IN BED RESTING WITHOUT DISTRESS. AWAKENS TO VERBAL STIMULI. ORIENTED TO SELF ONLY. TURNED OT RIGHT SIDE. WITHOUT NEEDS. IV LEFT FA SL, DRESSING CDI. ELLI ON, BED LOWEST POSITION, SRX2. WILL CTM
--- NOTE | 2018-08-20 20:15 | NUR ---
BS 250, GAVE 4 UNITS PER SS. WILL CTM
[2018-08-20 21:07] VITALS: BP 126/61
[2018-08-21 00:44] VITALS: BP 157/79
[2018-08-21 05:02] VITALS: BP 137/79
[2018-08-21 06:28] LABS: BASOPHILS 0.4 % (0-2); EOSINOPHILS 5.3 % (0-7); HEMOGLOBIN 12.1 g/dL (13.5-17.5); IMMATURE GRANULOCYTES 1.4 % (0-5); LYMPHOCYTES 26.2 % (15-50); MCH 31.1 pg (26.0-34.0); MCHC 33.6 g/dL (31.0-37.0); MCV 92.5 fL (80.0-100.0); MEAN PLATELET VOLUME 10.3 fL (7.4-10.4); NEUTROPHILS 57.7 % (40-80); PLATELET COUNT 198 10x3/uL (130-400); RBC 3.89 10x6/uL (4.20-6.10); RDW 14.6 % (11.5-14.5); WBC 5.6 10x3/uL (4.8-10.8)
[2018-08-21 06:54] LABS: ALBUMIN 2.2 g/dL (3.4-5.0); ANION GAP 8.6 mmol/L (8-16); BILIRUBIN - TOTAL 0.32 mg/dL (0.2-1.3); CALCIUM 8.6 mg/dL (8.5-10.1); CARBON DIOXIDE 29.2 mmol/L (21.0-32.0); CREATININE - SERUM 1.4 mg/dL (0.6-1.3); POTASSIUM - SERUM 3.8 mmol/L (3.5-5.1); PROTEIN - SERUM 5.8 g/dL (6.4-8.2)
--- NOTE | 2018-08-21 08:57 | NUR ---
GAVE MORNING MEDS, SITTING UP IN BED AND BEING FEED BREAKFAST BY THE HEALTH EDUCATION DIRECTOR. BED IN LOWEST POSITION AND CALL LIGHT WITH IN REACH. CONTINUE WITH PT CARE.
[2018-08-21 09:10] VITALS: BP 138/73
--- NOTE | 2018-08-21 11:35 | MORECARE ---
CASE MANAGEMENT DISCHARGE SUMMARY PATIENT: GONZALO HOU UNIT: [id number] ADM DATE: 08/13/18 AGE: 88 : 29 SEX: M ROOM/BED: D.2227 AUTHOR: VIANEY,DOC PHYSICIAN: REFERRING PHYSICIAN: ADRIEL NIETO MD DATE OF SERVICE: 08/21/18 Discharge Plan Patient Name: GONZALO HOU Facility: [facility]:[place] : 1930 Planned Disposition: [facility] w Plan Readm Anticipated Discharge Date: Discharge Date: Expected LOS: Initial Reviewer: [id number] Initial Review Date: 08/14/2018 Generated: 08/21/18 12:34 pm Comments DCP- Discharge Planning Updated by [id number]: Claudia Dillard on 08/21/18 10:[address] I faxed updated clinical to [facility] including Dr. Colon's note from today, patient is not ready for discharge yet. CM will continue to follow and assist with discharge planning/needs. DCP- Discharge Planning Updated by [id number]: Claudia Dillard on 08/20/18 12:[address] Anticipate discharge today or tomorrow. I called [facility] and he will be going to a skilled bed. I informed Regina of his contact isolation status and she states "that is no problem". She states to call herself or nurse, Sierra, if she is not available when discharge orders are received. Updated clinical faxed to [phone]. CM will continue to follow and assist with discharge planning/needs. DCP- Discharge Planning Updated by [id number]: Claudia Dillard on 08/14/18 1:[address] Patient Name: GONZALO HOU Admission Status: ER Accout number: [id number] Admission Date: 08-13-2018 : 1930 Admission Diagnosis: Attending: ADRIEL NIETO Current LOS: 1 Anticipated DC Date: Planned Disposition: [facility] w Plan Readm Primary Insurance: MEDICARE A & B Discharge Planning Comments: CM met with patient and his daughter (Ariane Tony) in the room to discuss discharge planning/needs. Patient is sleeping through assessment. His daughter states he has lived at [facility] for about 2 years. States he is completely dependent on the nursing staff there. States that he is able to sit in a wheelchair and they take him to his appointments in their van. States plan is to return to [facility] on discharge. CM will continue to follow and assist with discharge planning/needs. History Professor: Claudia Dillard Coverage Notice Reviewer: [id number] - Claudia Dillard Notice Issued Date-Time: 08/14/2018 11:10 Notice Type: Patient Choice Letter Notice Delivered To: Family Member Relationship to Patient: Daughter High Lift Driver Name: Ariane Tony Delivery Method: HAND - Hand Delivered Niyah Days: Prior Verbal Notification: Recipient Understood Notice: Yes Recipient Signature: Yes Med Rec Note Co-signed by Attending: Coverage Notice Comment: [facility] for [facility] Last DP export: 08/20/18 12:18 pm Patient Name: GONZALO HOU Page [id number] at 1135 All edits/amendments must be made on the electronic document DICTATION DATE: 08/21/18 1134 PRICING CONSULTANT: TONJA 08/21/18 1134 RPT#: [id number] DC DATE: STATUS: ADM IN [facility] [address] [place] [address] END OF REPORT
--- NOTE | 2018-08-21 12:19 | NUR ---
CALORIE COUNT KCALGM PROTEIN LUNCH 8021 DINNER BREAKFAST 24 HOUR [id number]
[2018-08-21 13:24] VITALS: BP 139/67
--- NOTE | 2018-08-21 14:24 | NUR ---
OT NOTE: PT COMPLETED POSITIONING TO DECREASE RISK OF SKIN BREAKDOWN WITH MYRA Hoang THANK YOU, JESSICA STORY
--- NOTE | 2018-08-21 16:21 | NUR ---
RESTING,WITHOUT NEEDS.FAMILY AT BEDSIDE. ISOLATION MAINTAINED
--- NOTE | 2018-08-21 19:45 | NUR ---
PT LYING IN BED RESTING WITHOUT DISTRESS, ORIENTED TO SELF ONLY. IV LEFT FA SL, NO REDNESS OR SWELLING AT INSERTION SITE. WITHOUT NEEDS AT THIS TIME. CL IN REACH, ELLI ON. SCDS ON. WILL CTM
[2018-08-21 20:00] VITALS: BP 171/84
--- NOTE | 2018-08-21 23:00 | NUR ---
PT GIVEN BED BATH AND COMPLETE LINEN CHANGE AT THIS TIME
[2018-08-22 04:00] VITALS: BP 156/60
[2018-08-22 06:48] LABS: BASOPHILS 0.2 % (0-2); EOSINOPHILS 4.9 % (0-7); HEMOGLOBIN 12.6 g/dL (13.5-17.5); IMMATURE GRANULOCYTES 1.4 % (0-5); LYMPHOCYTES 21.1 % (15-50); MCH 30.7 pg (26.0-34.0); MCHC 33.2 g/dL (31.0-37.0); MCV 92.7 fL (80.0-100.0); MEAN PLATELET VOLUME 9.6 fL (7.4-10.4); MONOCYTES 8.8 % (2-11); NEUTROPHILS 63.6 % (40-80); PLATELET COUNT 214 10x3/uL (130-400); RDW 14.6 % (11.5-14.5); WBC 5.9 10x3/uL (4.8-10.8)
[2018-08-22 06:57] LABS: ALBUMIN 2.2 g/dL (3.4-5.0); ANION GAP 8.9 mmol/L (8-16); BILIRUBIN - TOTAL 0.51 mg/dL (0.2-1.3); CALCIUM 8.6 mg/dL (8.5-10.1); CARBON DIOXIDE 28.9 mmol/L (21.0-32.0); CREATININE - SERUM 1.5 mg/dL (0.6-1.3); POTASSIUM - SERUM 3.8 mmol/L (3.5-5.1); PROTEIN - SERUM 6.2 g/dL (6.4-8.2)
--- NOTE | 2018-08-22 08:30 | NUR ---
PATIENT RESTING IN BED WITH SON BY HIS SIDE. AROUSED TO VOICE. DENIES NEEDS AT THIS TIME. BED LOW, CALL LIGHT IN REACH, RAILS UP X 2.
[2018-08-22 08:47] VITALS: BP 160/85
[2018-08-22] MEDS ORDERED: LANTUS INSULIN10 ML SC (10:43)
--- NOTE | 2018-08-22 11:56 | MORECARE ---
CASE MANAGEMENT DISCHARGE SUMMARY PATIENT: GONZALO FLORES UNIT: [id number] ADM DATE: 08/13/18 AGE: 88 : 29 SEX: M ROOM/BED: D.2227 AUTHOR: VIANEY,DOC PHYSICIAN: REFERRING PHYSICIAN: ADRIEL NIETO MD DATE OF SERVICE: 08/22/18 Discharge Plan Patient Name: GONZALO FLORES Facility: [facility]:[place] : 1930 Planned Disposition: [facility] w Plan Readm Anticipated Discharge Date: Discharge Date: Expected LOS: Initial Reviewer: [id number] Initial Review Date: 08/14/2018 Generated: 08/22/18 12:56 pm Comments DCP- Discharge Planning Updated by [id number]: Renetta Moon on 08/22/18 10:[address] CM met with patient and son Guero at bedside regarding dc plan/needs. Son, Guero Flores, signed IMM for patient. Son states his father is sleepy today. Contacted [facility] to notify of discharge today. Nurse can call report to Merlene @[phone]. Per nursing @facility, patient will return to a Skilled bed. service parts driver's name is Domitila. No other needs voiced. Renetta Moon RN DCP- Discharge Planning Updated by [id number]: Claudia Dillard on 08/21/18 10:[address] I faxed updated clinical to [facility] including Dr. Colon's note from today, patient is not ready for discharge yet. CM will continue to follow and assist with discharge planning/needs. DCP- Discharge Planning Updated by [id number]: Claudia Dillard on 08/20/18 12:[address] Anticipate discharge today or tomorrow. I called [facility] and he will be going to a skilled bed. I informed Regina of his contact isolation status and she states "that is no problem". She states to call herself or nurse, Sierra, if she is not available when discharge orders are received. Updated clinical faxed to [phone]. CM will continue to follow and assist with discharge planning/needs. DCP- Discharge Planning Updated by [id number]: Claudia Dillard on 08/14/18 1:[address] Patient Name: GONZALO FLORES Admission Status: ER Accout number: [id number] Admission Date: 08-13-2018 : 1930 Admission Diagnosis: Attending: ADRIEL NIETO Current LOS: 1 Anticipated DC Date: Planned Disposition: [facility] w Plan Readm Primary Insurance: MEDICARE A & B Discharge Planning Comments: CM met with patient and his daughter (Ariane Tony) in the room to discuss discharge planning/needs. Patient is sleeping through assessment. His daughter states he has lived at [facility] for about 2 years. States he is completely dependent on the nursing staff there. States that he is able to sit in a wheelchair and they take him to his appointments in their van. States plan is to return to [facility] on discharge. CM will continue to follow and assist with discharge planning/needs. Casino Supervisor: Claudia Dillard Coverage Notice Reviewer: [id number] - Claudia Dillard Notice Issued Date-Time: 08/14/2018 11:10 Notice Type: Patient Choice Letter Notice Delivered To: Family Member Relationship to Patient: Daughter Director Sales Training Name: Ariane Tony Delivery Method: HAND - Hand Delivered Niyah Days: Prior Verbal Notification: Recipient Understood Notice: Yes Recipient Signature: Yes Med Rec Note Co-signed by Attending: Coverage Notice Comment: [facility] for [facility] Reviewer: [id number] Margarita Moon Notice Issued Date-Time: 08/22/2018 11:07 Notice Type: IM Admission Notice Notice Delivered To: Family Member Relationship to Patient: Son Director Sales Training Name: Guero James Delivery Method: - Niyah Days: Prior Verbal Notification: Recipient Understood Notice: Recipient Signature: Med Rec Note Co-signed by Attending: Coverage Notice Comment: Last DP export: 08/21/18 10:35 am Patient Name: GONZALO FLORES Page [phone] at 1156 All edits/amendments must be made on the electronic document DICTATION DATE: 08/22/18 1156 CD [employer] MAKE UP HELPER: TONJA 08/22/18 1156 RPT#: [id number] DC DATE: STATUS: ADM IN [facility] [address] [place] [address] END OF REPORT
--- NOTE | 2018-08-22 12:32 | NUR ---
DC'D IV, CATHETER INTACT.
--- NOTE | 2018-08-22 13:41 | NUR ---
[facility] DC INSTRUCTIONS GIVEN TO FAMILY MEMBER, ALL QUESTIONS ANSWERED. NO OTHER NEEDS.
--- NOTE | 2018-08-23 07:23 | MORECARE ---
CASE MANAGEMENT DISCHARGE SUMMARY PATIENT: GONZALO FLORES UNIT: [id number] ADM DATE: 08/13/18 AGE: 88 : 29 SEX: M ROOM/BED: D.2227 AUTHOR: VIANEY,DOC PHYSICIAN: REFERRING PHYSICIAN: ADRIEL NIETO MD DATE OF SERVICE: 08/23/18 Discharge Plan Patient Name: GONZALO FLORES Facility: [facility]:[place] : 1930 Planned Disposition: [facility] Facility w Plan Readm Anticipated Discharge Date: Discharge Date: 08/22/2018 Expected LOS: 0 Initial Reviewer: [id number] Initial Review Date: 08/14/2018 Generated: 08/23/18 8:23 am Comments DCP- Discharge Planning Updated by [id number]: Renetta Moon on 08/22/18 10:[address] CM met with patient and son Guero at bedside regarding dc plan/needs. Son, Guero Flores, signed IMM for patient. Son states his father is sleepy today. Contacted [facility] to notify of discharge today. Nurse can call report to Merlene @[phone]. Per nursing @facility, patient will return to a Skilled bed. putaway driver's name is Domitila. No other needs voiced. Renetta Moon RN DCP- Discharge Planning Updated by [email or web address]: Claudia Dillard on 08/21/18 10:[address] I faxed updated clinical to [facility] including Dr. Colon's note from today, patient is not ready for discharge yet. CM will continue to follow and assist with discharge planning/needs. DCP- Discharge Planning Updated by [email or web address]: Claudia Dillard on 08/20/18 12:[address] Anticipate discharge today or tomorrow. I called [facility] and he will be going to a skilled bed. I informed Regina of his contact isolation status and she states "that is no problem". She states to call herself or nurse, Sierra, if she is not available when discharge orders are received. Updated clinical faxed to [phone]. CM will continue to follow and assist with discharge planning/needs. DCP- Discharge Planning Updated by [email or web address]: Claudia Dillard on 08/14/18 1:[address] Patient Name: GONZALO FLORES Admission Status: ER Accout number: [id number] Admission Date: 08-13-2018 : 1930 Admission Diagnosis: Attending: ADRIEL NIETO Current LOS: 1 Anticipated DC Date: Planned Disposition: [facility] Facility w Plan Readm Primary Insurance: MEDICARE A & B Discharge Planning Comments: CM met with patient and his daughter (Ariane Tony) in the room to discuss discharge planning/needs. Patient is sleeping through assessment. His daughter states he has lived at [facility] for about 2 years. States he is completely dependent on the nursing staff there. States that he is able to sit in a wheelchair and they take him to his appointments in their van. States plan is to return to [facility] on discharge. CM will continue to follow and assist with discharge planning/needs. Internal Affairs Commander: Claudia Dillard Coverage Notice Reviewer: [id number] - Claudia Dillard Notice Issued Date-Time: 08/14/2018 11:10 Notice Type: Patient Choice Letter Notice Delivered To: Family Member Relationship to Patient: Daughter Professor Of Pathology Name: Ariane Tony Delivery Method: HAND - Hand Delivered Niyah Days: Prior Verbal Notification: Recipient Understood Notice: Yes Recipient Signature: Yes Med Rec Note Co-signed by Attending: Coverage Notice Comment: [facility] for [facility] Reviewer: [id number] Margarita Moon Notice Issued Date-Time: 08/22/2018 11:07 Notice Type: IM Admission Notice Notice Delivered To: Family Member Relationship to Patient: Son Professor Of Pathology Name: Guero James Delivery Method: - Niyah Days: Prior Verbal Notification: Recipient Understood Notice: Recipient Signature: Med Rec Note Co-signed by Attending: Coverage Notice Comment: Last DP export: 08/22/18 10:56 am Patient Name: GONZALO FLORES Page [id number] at 0723 All edits/amendments must be made on the electronic document DICTATION DATE: 08/23/18722 PUBLIC SAFETY TELECOMMUNICATOR: TONJA 08/23/18722 RPT#: [id number] DC DATE:08/22/18 STATUS: DIS IN [facility] [address] [place] [address] END OF REPORT
== END 2018-08-22 13:42 | DRG 682 ==
LOC: D.ER 20:36 → D.MS 08-13 00:51
PROVIDERS: Family Medicine; ADMIT Family Medicine; ATTEND Family Medicine
DX: N17.9 Acute kidney failure, unspecified (principal); E43 Unspecified severe protein-calorie malnutrition; G93.41 Metabolic encephalopathy; J18.9 Pneumonia, unspecified organism; R40.2124 Coma scale, eyes open, to pain, 24 hours or more after hospital admission; R40.2314 Coma scale, best motor response, none, 24 hours or more after hospital admission; E87.0 Hyperosmolality and hypernatremia; N39.0 Urinary tract infection, site not specified; E87.8 Other disorders of electrolyte and fluid balance, not elsewhere classified; E87.6 Hypokalemia; I48.91 Unspecified atrial fibrillation; E11.69 Type 2 diabetes mellitus with other specified complication; E78.5 Hyperlipidemia, unspecified; I10 Essential (primary) hypertension; E86.0 Dehydration; I12.9 Hypertensive chronic kidney disease with stage 1 through stage 4 chronic kidney disease, or unspecified chronic kidney disease; E11.22 Type 2 diabetes mellitus with diabetic chronic kidney disease; N18.3 Chronic kidney disease, stage 3 (moderate); R40.2234 Coma scale, best verbal response, inappropriate words, 24 hours or more after hospital admission